=== PATIENT | female | born 2000 | race Caucasian/White ===

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

== ENCOUNTER 2021-04-06 12:55 | Outpatient (CLI) | payer OTHER, SELFPAY ==
--- NOTE | 2021-04-09 08:21 | WPDHOLTEREM ---
Holter/Event Monitor Holter/Event Monitor Date of procedure: 04/06/21 Procedure Type: 24 hour holter monitor Indications: Chest pain Conclusion: 1. 24 hour holter monitor on 04/06/21. 2. Underlying rhythm is sinus rhythm. HR range 65-156 bpm; average HR 106 bpm. 3. No premature supraventricular complexes. No supraventricular tachycardia. 4. No premature ventricular complexes. No ventricular tachycardia. 5. No sinoatrial or atrioventricular blocks. No significant pauses greater than 2 seconds. 6. No symptoms available for correlation.
== END 2021-04-06 12:56 | disposition home or self-care (01) ==
LOC: CHSCARD 13:00
PROVIDERS: PCP Family Medicine; Visit Provider Family Medicine
DX: R07.89 Other chest pain (principal)
CPT/HCPCS: 93225; 93226

== ENCOUNTER 2021-07-11 14:17 | Emergency (ER) | payer OTHER, SELFPAY ==
--- NOTE | ~2021-07-11 | XR_ITS ---
XR hand LT 2V, XR wrist LT 2V 07/11/2021 14:44 INDICATION: Left wrist and hand pain after twisting injury PROCEDURE: 2 views each of the left hand and wrist COMPARISON: No prior studies for comparison. FINDINGS: Fracture, dislocation or subluxation is not identified. The soft tissues appear within norm al limits. No foreign bodies are identified. IMPRESSION: 1: NO ACUTE BONE OR JOINT ABNORMALITY IDENTIFIED. Reviewed, dictated and finalized at location A. IMPRESSION: 1: NO ACUTE BONE OR JOINT ABNORMALITY IDENTIFIED.
[2021-07-11 14:30] VITALS: BP 128/83; PULSE 106; RESP 14; TEMP 36.1; O2SAT 98
--- NOTE | 2021-07-11 14:51 | ED.UPPEXIN ---
HPI - Extremity Injury (Upper) General Chief Complaint: Extremity Injury, Upper Stated Complaint: L hand pain Source: patient Mode of arrival: ambulatory Limitations: no limitations History of Present Illness HPI narrative: a 21-year-old female that injured her left wrist and hand few days ago complains of mild pain with no numbness or tingling no flank tenderness no bruising has good range of motion with no numbness or tingling no bruising. complaint: injury to: left and wrist Onset (ago): day(s) Handedness: right Place: home Severity: mild Related Data Home Medications Medication Instructions Recorded Confirmed No Home Medications 07/11/21 07/11/21 Allergies Allergy/AdvReac Type Severity Reaction Status Date / Time codeine Allergy Mild Unknown Verified 02/17/21 13:38 Review of Systems Review of Systems: All systems reviewed & are unremarkable except as noted in HPI and below PMFSH Past Medical History Medical History Acute insomnia ADHD Bipolar disorder Depression Gonorrhea Nicotine dependence, cigarettes, uncomplicated Prior miscarriage with in first trimester, antepartum Surgical History Surgical History No pertinent past surgical history Family History Family History Mother Healthy female Social History Social History Smoking status: Current every day smoker Tobacco type: cigarettes Exam Const: General: no acute distress and alert Orientation/consciousness: patient oriented x3 HENMT: Head: normal to inspection Eyes: Conjunctivae: conjunctivae normal Pupils: Equal, round and reactive pupils present EOM: EOMs intact bilaterally Neck: Neck: normal visual inspection, no lymphadenopathy and no meningeal signs Chest: Chest palpation & inspection: normal inspection of the chest Resp: Effort & Inspection: normal respiratory effort Cardio: Rate: regular rate Rhythm: regular rhythm GI: GI Palp: Yes Soft to palpation Percussion: Yes normal to percussion Urinary Catheter: Urinary Catheter: patent and draining Skin: General skin exam: normal color Rashes: no rashes Neuro: General: patient oriented x3 Extrem: General: normal to inspection and no pedal edema Psych: Mental Status: mental status grossly normal Affect: normal affect Attitude: cooperative Course Course Emergency Course: X-rays reviewed with patient which showed no acute fractures advised follow-up with primary care physician within the next 1 to 2 weeks for further evaluation and treatment. Vital Signs Vital signs: Vital Signs Temperature 36.1 C L 07/11/21 14:30 Pulse Rate 106 H 07/11/21 14:30 Respiratory Rate 14 07/11/21 14:30 Blood Pressure 128/83 07/11/21 14:30 Pulse Oximetry 98 07/11/21 14:30 Temperature 36.1 C L 07/11/21 14:30 Pulse Rate 106 H 07/11/21 14:30 Respiratory Rate 14 07/11/21 14:30 Blood Pressure 128/83 07/11/21 14:30 Pulse Oximetry 98 07/11/21 14:30 Critical Care Time Critical Care Time Critical Care Time: No Discharge Plan Discharge Clinical Impression: Hand sprain Qualifiers: Encounter type: initial encounter Laterality: left Qualified Code(s): S63.92XA - Sprain of unspecified part of left wrist and hand, initial encounter Patient Disposition: Home, Self-Care Condition: Stable Instructions: Antibiotic Form, Hand Sprain (ED) Additional Instructions: take Tylenol or Motrin [id number], continue Armando wrap and follow with primary care physician within 1 to 2 weeks further evaluation and treatment. Prescriptions: No Action No Home Medications RF: 0 Follow-up/Referrals: Tiffany Castelan NP [Primary Care Provider] - Time of Disposition: 14:55
== END 2021-07-11 15:14 | disposition home or self-care (01) ==
PROVIDERS: Emergency Provider Emergency Medicine; PCP Nurse Practitioner Family
DX: S63.92XA Sprain of unspecified part of left wrist and hand, initial encounter (principal)
CPT/HCPCS: 73100; 73120; 99282; 99283

== ENCOUNTER 2021-09-15 14:09 | Outpatient (CLI) | payer OTHER, SELFPAY ==
[2021-09-15 14:49] LABS: Basophils Absolute Auto 0.03 K/mm3 (0.00-0.10); Basophils Percent Auto 0.4 % (0.0-1.0); Eosinophils Absolute Auto 0.21 K/mm3 (0.02-0.50); Eosinophils Percent Auto 3.1 % (1.0-6.0); Hematocrit 42.6 % (35.0-49.0); Hemoglobin 14.7 g/dL (12.0-15.0); Immature Granulocyte Absolute 0.01 K/mm3 (0.00-0.00); Immature Granulocyte Percent A 0.1 % (0.0-0.0); Lymphocytes Percent Auto 33.5 % (18.0-42.0); Mean Corpuscular HGB Conc 34.5 g/dL (32.0-36.0); Mean Corpuscular Hemoglobin 29.8 pg (27.0-31.0); Mean Corpuscular Volume 86.4 fL (78.0-102.0); Mean Platelet Volume 10.5 fl (9.2-11.8); Monocytes Absolute Auto 0.49 K/mm3 (0.10-0.90); Monocytes Percent Auto 7.1 % (2.0-11.0); Neutrophils Absolute Auto 3.8 K/mm3 (1.7-7.2); Neutrophils Percent Auto 55.8 % (50.0-70.0); Platelet Count Result 274 K/mm3 (150-420); Red Blood Count 4.93 M/mm3 (4.20-5.40); Red Cell Distribution Width 12.4 % (11.6-14.4); White Blood Count 6.9 K/mm3 (4.8-10.8)
[2021-09-15 15:57] LABS: Alanine Aminotransferase 58 U/L (14-59); Alkaline Phosphatase 67 U/L (46-116); Anion Gap 10 mmol/L (8-16); Aspartate Amino Transferase 36 U/L (15-37); Bilirubin,Total 0.3 mg/dL (0.00-1.00); Blood Urea Nitrogen 9 mg/dL (7-18); Calcium 8.8 mg/dL (8.5-10.1); Carbon Dioxide 26 mmol/L (21-32); Chloride 104 mmol/L (98-108); Estimated Glomerular Filt Rate > 60; Free T4 Free Thyroxine 0.84 ng/dL (0.76-1.46); Glucose 91 mg/dL (70-99); Iron 84 ug/dL (50-170); Osmolality Calculated 288 mOsm/kg (285-295); Potassium 4.1 mmol/L (3.5-5.1); Sodium 140 mmol/L (136-145); Thyroid Stimulating Hormone 0.52 uIU/mL (0.36-3.74); Vitamin B12 454 pg/mL (193-986)
[2021-09-17 13:12] LABS: Vitamin D 25 Hydroxy 11 ng/mL (30-100)
== END 2021-09-15 14:10 | disposition home or self-care (01) ==
LOC: CHSLAB 14:13
PROVIDERS: PCP Nurse Practitioner Family; Visit Provider Nurse Practitioner Family
DX: R30.0 Dysuria (principal)
CPT/HCPCS: 36415; 80053; 82306; 82607; 83540; 83735; 84439; 84443; 85025; 87086

== ENCOUNTER 2021-12-06 11:18 | Emergency (ER) | payer OTHER, SELFPAY ==
--- NOTE | ~2021-12-06 | XR_ITS ---
XR foot RT min 3V 12/06/2021 11:48 Indication: Right foot pain Procedure: 4 views right foot Comparison: No prior studies for comparison. Findings: No fracture, subluxation or dislocation. No soft tissue abnormality. No foreign bodies. Lis franc joint intact. Impression: 1: No acute fracture. Reviewed, dictated and finalized at location A. T SPR[employer]ER SANDB[employer]ER Impression: 1: No acute fracture.
[2021-12-06 11:20] VITALS: BP 122/73; PULSE 89; RESP 16; TEMP 36.6; O2SAT 97
--- NOTE | 2021-12-06 11:30 | ED.EXTPRO ---
HPI - Extremity Problem General Chief complaint: Extremity Injury, Lower Stated complaint: R foot pain Source: patient and RN notes reviewed Mode of arrival: ambulatory Limitations: no limitations History of Present Illness Complaint: extremity pain Onset (ago): day(s) (2) Pain Consistency: intermittent Location: right, lower extremity and other (foot) Severity scale (1-10): 4 Quality: aching and dull Radiation: none Relieving factors: nothing Exacerbating factors: weight bearing, walking and palpation Associated symptoms: denies other symptoms Related Data Allergies Allergy/AdvReac Type Severity Reaction Status Date / Time codeine Allergy Mild Unknown Verified 12/06/21 11:35 Review of Systems Review of Systems: All systems reviewed & are unremarkable except as noted in HPI and below PMFSH Past Medical History Medical History Acute insomnia ADHD Bipolar disorder Depression Gonorrhea Nicotine dependence, cigarettes, uncomplicated Prior miscarriage with in first trimester, antepartum Surgical History Surgical History No pertinent past surgical history Family History Family History Mother Healthy female Social History Social History Smoking status: Current every day smoker Tobacco type: cigarettes Exam Const: General: healthy appearing, no acute distress and alert Nutritional Appearance: well nourished Orientation/consciousness: patient oriented x3 HENMT: Head: normal to inspection Ears: external ears normal Eyes: Conjunctivae: conjunctivae normal Pupils: Equal, round and reactive pupils present EOM: EOMs intact bilaterally Neck: Neck: normal visual inspection Resp: Effort & Inspection: normal respiratory effort Auscultation: clear to auscultation bilaterally Cardio: Rate: regular rate Rhythm: regular rhythm GI: GI Palp: Yes Soft to palpation and No Tenderness to palpation present (GI) Auscultation: normal bowel sounds Back/Spine/Pelvis: Cervical Spine: cervical ROM normal Thoracic/Lumbar Spine: thoraco-lumbar ROM normal Skin: General skin exam: normal color Rashes: no rashes Neuro: General: patient oriented x3, moves all extremities, no meningeal signs, no focal motor deficits and CN's II-XI intact bilaterally Speech: normal speech Gait exam (Neuro): Normal gait present Extrem: General: normal exam except as noted and no clubbing, cyanosis or edema Right lower extremity: normal to inspection, full ROM and foot Details: normal capillary refill and tenderness Location: of the mid foot Location: dorsally ( Over the 4th metatarsal) Psych: Appearance: grossly normal and well kempt Mental Status: mental status grossly normal Affect: normal affect Attitude: cooperative Thought content: Yes Normal thought content present Course Vital Signs Vital signs: Vital Signs Temperature 36.6 C 12/06/21 11:20 Pulse Rate 89 12/06/21 11:20 Respiratory Rate 16 12/06/21 11:20 Blood Pressure 122/73 12/06/21 11:20 Pulse Oximetry 97 12/06/21 11:20 Temperature 36.6 C 12/06/21 11:20 Pulse Rate 94 12/06/21 12:26 Respiratory Rate 18 12/06/21 12:26 Blood Pressure 117/67 12/06/21 12:26 Pulse Oximetry 98 12/06/21 12:26 Discharge Plan Discharge Clinical Impression: Acute foot pain Qualifiers: Laterality: right Qualified Code(s): M79.671 - Pain in right foot Patient Disposition: Home, Self-Care Condition: Stable Instructions: Metatarsalgia (DC) Additional Instructions: can use heat as needed. See her primary care physician if not improved in the next 10-14 days. Prescriptions: New nabumetone 750 mg tablet 750 mg PO BID PRN (Reason: pain) Qty: 20 RF: 0 Follow-up/Referrals: Tiffany Castelan NP [Primary Ca
--- NOTE | 2021-12-06 11:37 | PC.NURSE ---
RN in with ERP to rn wound exam
[2021-12-06 12:26] VITALS: BP 117/67; PULSE 94; RESP 18; O2SAT 98
== END 2021-12-06 12:28 | disposition home or self-care (01) ==
PROVIDERS: Emergency Provider Emergency Medicine; PCP Nurse Practitioner Family
DX: M79.671 Pain in right foot (principal)
CPT/HCPCS: 73630; 99283

== ENCOUNTER 2022-01-02 19:19 | Emergency (ER) | payer OTHER, SELFPAY ==
--- NOTE | ~2022-01-02 | CT_ITS ---
EXAMINATION: CT brain wo con DATE: 01/02/2022 21:19 INDICATION: Headache. TECHNIQUE: Computed tomography (CT) of the head was performed without intravenous contrast. The mA wa s adjusted according to patient size. Iterative reconstruction technique was employed. The dose-lengt h product was 605.33 mGy-cm. COMPARISON: None FINDINGS: There is no intracranial hemorrhage, acute infarction, or abnormal intracranial mass lesion . The ventricles are normal in size. The paranasal sinuses are clear. The mastoid air cells are chicho l. The orbits are normal. . IMPRESSION: 1. Normal brain. Reviewed, dictated and finalized at location A. ISH REMOVER IMPRESSION: 1. Normal brain.
[2022-01-02 20:03] VITALS: BP 123/75; PULSE 72; RESP 17; TEMP 36.9; O2SAT 100
[2022-01-02 20:45] VITALS: BP 139/83; PULSE 80; O2SAT 97
[2022-01-02] MEDS: ONDANSETRON HCL ODT 4 MG TABLET PO (20:47)
[2022-01-02 20:50] LABS: Pregnancy On Board Control Positive; Urine Pregnancy Test Negative
[2022-01-02 20:53] LABS: Add Urine Microscopic? YES; Appearance Urine Clear (Clear); Bilirubin Urine Negative (Negative); Blood Urine 1+ (Negative); Color Urine Light Yellow (Yellow); Glucose Urine UA Negative (Negative); Ketones Urine Negative (Negative); Leukocyte Esterase Ur Negative (Negative); Nitrate Urine Negative (Negative); Protein Urine Negative (Negative); Specific Grav Ur 1.025 (1.010-1.020); Urobilinogen Urine 0.2 mg/dL (0.2-1.0); pH Urine 5.5 (5.0-8.0)
--- NOTE | 2022-01-02 20:54 | ED.HA ---
HPI - Headache General Chief Complaint: Unspecified Stated Complaint: Throwing up, almost passing out Time Seen by Provider: 01/02/22 20:25 Source: patient Mode of arrival: ambulatory Limitations: no limitations History of Present Illness HPI Narrative: 21-year-old woman comes in today complaining of lightheadedness, dizziness, feeling like she is going to pass out, head pain in the right occipital area and right ear pain. She states that her symptoms started a week ago and have gradually gotten worse. She has also had some nausea. She states that she has not had her period for the last 4 months but states that she is not . She had a baby approximately 1 year ago. She denies head injury, syncope, falls, seizures, photophobia and diplopia. MD elicited complaint: headache Onset (ago): week(s) (1) Onset description: gradually Location: right and occipital Severity: moderate Quality & Timing: pressure and progressively worsening Exacerbating factors: none Relieving factors: nothing Context: occurred at rest Associated symptoms: nausea, near syncope and lightheadedness Treatments prior to arrival: acetaminophen Related Data Allergies Allergy/AdvReac Type Severity Reaction Status Date / Time codeine Allergy Mild Unknown Verified 01/02/22 20:00 Review of Systems Review of Systems: All systems reviewed & are unremarkable except as noted in HPI and below Constitutional: Constitutional: Denies chills and Denies fever(s) Eyes: Eyes: Denies change in vision and Denies photophobia ENT: Denies dysphagia, Denies nasal congestion and Denies sore throat Cardiovascular: Cardiovascular: Denies chest pain Respiratory: Respiratory: Denies cough and Denies dyspnea Gastrointestinal: Gastrointestinal: Denies abdominal pain, Reports nausea and Denies vomiting Genitourinary: Genitourinary: Denies hematuria, Denies nocturia and Denies dysuria Musculoskeletal: Musculoskeletal: Denies back pain, Denies arthralgias and Denies joint swelling Integumentary/Breasts: Skin/Breast: Denies pruritus, Denies erythema and Denies rash Neurologic: Reports as per HPI, Denies confusion, Denies vertigo, Reports dizziness, Denies syncope, Denies focal weakness, Denies numbness and Denies weakness Allergic/Immunologic: Allergic/Immunologic: Denies throat swelling PMFSH Past Medical History Medical History Acute insomnia ADHD Bipolar disorder Depression Gonorrhea Nicotine dependence, cigarettes, uncomplicated Prior miscarriage with in first trimester, antepartum Surgical History Surgical History No pertinent past surgical history Family History Family History Mother Healthy female Social History Social History (Updated 01/02/22 @ 20:57 by Pawel Ramirez MD) Smoking status: Current every day smoker Tobacco type: cigarettes Alcohol intake: current Alcohol use details: Occasional Substance use: never Living arrangements: with family Exam Const: General: healthy appearing, no acute distress and alert Orientation/consciousness: patient oriented x3 Limitations: no limitations HENMT: Head: normal to inspection Ears: external ears normal, TM's normal bilaterally and EAC's normal Face and sinus: normal facial exam Throat: posterior oropharynx normal and uvula midline Eyes: Conjunctivae: conjunctivae normal Pupils: Equal, round and reactive pupils present EOM: EOMs intact bilaterally Neck: Neck: lymphadenopathy noted and no meningeal signs Resp: Effort & Inspection: normal respiratory effort and not labored Auscultation: clear to auscultation bilaterally, no rales, no rhonchi and no wheezes Cardio: Rate: regular rate Rhythm: regular rhythm Heart sounds: no murmurs Skin: General skin exam: normal color, no jaundice and no pall
[2022-01-02 21:00] VITALS: BP 130/90; PULSE 77; O2SAT 97
[2022-01-02 21:08] LABS: Basophils Absolute Auto 0.03 K/mm3 (0.00-0.10); Basophils Percent Auto 0.4 % (0.0-1.0); Eosinophils Absolute Auto 0.14 K/mm3 (0.02-0.50); Eosinophils Percent Auto 1.8 % (1.0-6.0); Hematocrit 46.1 % (35.0-49.0); Hemoglobin 15.7 g/dL (12.0-15.0); Immature Granulocyte Absolute 0.02 K/mm3 (0.00-0.00); Immature Granulocyte Percent A 0.3 % (0.0-0.0); Lymphocytes Absolute Auto 2.37 K/mm3 (1.10-4.50); Lymphocytes Percent Auto 30.5 % (18.0-42.0); Mean Corpuscular HGB Conc 34.1 g/dL (32.0-36.0); Mean Corpuscular Hemoglobin 30.4 pg (27.0-31.0); Mean Corpuscular Volume 89.3 fL (78.0-102.0); Mean Platelet Volume 10.9 fl (9.2-11.8); Monocytes Absolute Auto 0.37 K/mm3 (0.10-0.90); Monocytes Percent Auto 4.8 % (2.0-11.0); Neutrophils Absolute Auto 4.8 K/mm3 (1.7-7.2); Neutrophils Percent Auto 62.2 % (50.0-70.0); Platelet Count Result 257 K/mm3 (150-420); Red Blood Count 5.16 M/mm3 (4.20-5.40); Red Cell Distribution Width 11.5 % (11.6-14.4); White Blood Count 7.8 K/mm3 (4.8-10.8)
[2022-01-02 21:10] LABS: Mucus Urine Heavy /lpf; RBC Urine None seen /hpf (0-2); Squamous Epithelial Cell Urine Moderate /hpf (Few)
[2022-01-02 21:23] LABS: Alanine Aminotransferase 32 U/L (14-59); Albumin Level 4.1 g/dL (3.4-5.0); Alkaline Phosphatase 69 U/L (46-116); Anion Gap 11 mmol/L (8-16); Aspartate Amino Transferase 18 U/L (15-37); Bilirubin,Total 0.3 mg/dL (0.00-1.00); Blood Urea Nitrogen 9 mg/dL (7-18); Calcium 9.1 mg/dL (8.5-10.1); Carbon Dioxide 27 mmol/L (21-32); Chloride 105 mmol/L (98-108); Estimated CRCL calculation 659 ml/min; Estimated Glomerular Filt Rate > 60; Glucose 86 mg/dL (70-99); Osmolality Calculated 293 mOsm/kg (285-295); Potassium 3.9 mmol/L (3.5-5.1); Sodium 143 mmol/L (136-145); Total Protein 7.4 g/dL (6.4-8.2)
[2022-01-02 23:59] VITALS: BP 134/90; PULSE 58; RESP 16; TEMP 36.6; O2SAT 100
== END 2022-01-03 00:17 | disposition home or self-care (01) ==
PROVIDERS: Emergency Provider Emergency Medicine; PCP Nurse Practitioner Family
DX: R51.9 Headache, unspecified (principal)
CPT/HCPCS: 36415; 70450; 80053; 81001; 81025; 85025; 99284; A9270

== ENCOUNTER 2022-01-07 11:02 | Outpatient (CLI) | payer OTHER, SELFPAY ==
[2022-01-07] MEDS: DIVALPROEX SODIUM ER 500 MG TAB.24H PO (11:59)
[2022-01-07] MEDS: METOCLOPRAMIDE HCL INJ 10 MG/2 ML VIAL IV PUSH (11:59)
[2022-01-07] MEDS: DEXAMETHASONE SOD PHOS INJ 4 MG/ML VIAL IV PUSH (12:00)
[2022-01-07] MEDS: SODIUM CHLORIDE 0.9% IV 1,000 ML 999 ML IVPB (12:00)
== END 2022-01-07 11:03 | disposition home or self-care (01) ==
LOC: CHSTREATRM 11:03
PROVIDERS: PCP Nurse Practitioner Family; Visit Provider Nurse Practitioner Family
DX: G43.909 Migraine, unspecified, not intractable, without status migrainosus (principal)
CPT/HCPCS: 96361; 96365; 96374; 96375; A9270; J1100; J2765

== ENCOUNTER 2022-03-22 22:58 | Emergency (ER) | payer OTHER, SELFPAY ==
--- NOTE | ~2022-03-22 | XR_ITS ---
EXAMINATION: XR chest 1V portable DATE: 03/22/2022 23:29 INDICATION: Fever. TECHNIQUE: A single frontal view of the chest was obtained. COMPARISON: Chest 2 views 01/14/2015 FINDINGS: The chest demonstrates clear lungs without pneumonia, pleural effusion, or pneumothorax. Th e heart size is normal. IMPRESSION: 1. No acute cardiopulmonary disease. Reviewed, dictated and finalized at location A.
[2022-03-22 23:15] VITALS: BP 99/63; PULSE 112; RESP 19; TEMP 37.4; O2SAT 99
[2022-03-22 23:47] LABS: Basophils Absolute Auto 0.02 K/mm3 (0.00-0.10); Basophils Percent Auto 0.3 % (0.0-1.0); Eosinophils Percent Auto 1.7 % (1.0-6.0); Hematocrit 42.1 % (35.0-49.0); Hemoglobin 14.4 g/dL (12.0-15.0); Immature Granulocyte Absolute 0.02 K/mm3 (0.00-0.00); Immature Granulocyte Percent A 0.3 % (0.0-0.0); Lymphocytes Absolute Auto 0.78 K/mm3 (1.10-4.50); Lymphocytes Percent Auto 12.9 % (18.0-42.0); Mean Corpuscular HGB Conc 34.2 g/dL (32.0-36.0); Mean Corpuscular Hemoglobin 30.5 pg (27.0-31.0); Mean Corpuscular Volume 89.2 fL (78.0-102.0); Mean Platelet Volume 10.2 fl (9.2-11.8); Monocytes Absolute Auto 0.59 K/mm3 (0.10-0.90); Monocytes Percent Auto 9.8 % (2.0-11.0); Neutrophils Absolute Auto 4.5 K/mm3 (1.7-7.2); Platelet Count Result 236 K/mm3 (150-420); Red Blood Count 4.72 M/mm3 (4.20-5.40); Red Cell Distribution Width 11.6 % (11.6-14.4)
[2022-03-22 23:49] LABS: Add Urine Microscopic? YES; Appearance Urine Clear (Clear); Bilirubin Urine Negative (Negative); Blood Urine 1+ (Negative); Color Urine Light Yellow (Yellow); Glucose Urine UA Negative (Negative); Ketones Urine Negative (Negative); Leukocyte Esterase Ur Negative (Negative); Nitrate Urine Negative (Negative); Protein Urine Negative (Negative); Urobilinogen Urine 0.2 mg/dL (0.2-1.0)
[2022-03-22] MEDS: IBUPROFEN 400 MG TABLET 800 MG PO (23:53)
[2022-03-22] MEDS: SODIUM CHLORIDE 0.9% IV 1,000 ML 999 ML IV CONT (23:53)
[2022-03-22 23:59] LABS: Bacteria Urine Trace /hpf; SPREG INTERNAL CONTROL Positive; Serum Qual hCG Negative; Squamous Epithelial Cell Urine Rare /hpf (Few); WBC Urine 0-3 /hpf (0-3)
[2022-03-23 00:04] LABS: Alanine Aminotransferase 45 U/L (14-59); Albumin Level 3.9 g/dL (3.4-5.0); Alkaline Phosphatase 64 U/L (46-116); Anion Gap 7 mmol/L (8-16); Aspartate Amino Transferase 22 U/L (15-37); Bilirubin,Total 0.2 mg/dL (0.00-1.00); Blood Urea Nitrogen 8 mg/dL (7-18); Calcium 8.7 mg/dL (8.5-10.1); Carbon Dioxide 27 mmol/L (21-32); Chloride 101 mmol/L (98-108); Estimated CRCL calculation 119 ml/min; Estimated Glomerular Filt Rate > 60; Glucose 94 mg/dL (70-99); Osmolality Calculated 278 mOsm/kg (285-295); Potassium 3.5 mmol/L (3.5-5.1); Sodium 135 mmol/L (136-145); Total Protein 7.3 g/dL (6.4-8.2)
[2022-03-23 00:30] LABS: Influenza A QL RT-PCR Negative (Negative); Influenza B QL RT-PCR Negative (Negative); SARS-CoV-2 RNA PCR Positive (Negative)
--- NOTE | 2022-03-23 00:30 | ED.FEVER ---
HPI - Fever General Chief Complaint: Fever Stated Complaint: fever,chills,nausea,body aches Time Seen by Provider: 03/22/22 23:03 Source: patient and RN notes reviewed Mode of arrival: ambulatory Limitations: no limitations History of Present Illness MD elicited complaint: fever Onset (ago): hour(s) (1) Measured temperature: 102 C Exacerbating factors: nothing Relieving factors: acetaminophen Associated symptoms: myalgias and nausea Treatments prior to arrival fever: acetaminophen Related Data Allergies Allergy/AdvReac Type Severity Reaction Status Date / Time codeine Allergy Mild Unknown Verified 03/22/22 23:13 Review of Systems Review of Systems: All systems reviewed & are unremarkable except as noted in HPI and below PMFSH Past Medical History Medical History Acute insomnia ADHD Bipolar disorder Depression Diarrhea Eustachian tube dysfunction Fatigue Gonorrhea Nicotine dependence, cigarettes, uncomplicated Prior miscarriage with in first trimester, antepartum UTI (urinary tract infection) Viral syndrome Surgical History Surgical History No pertinent past surgical history Family History Family History Mother Healthy female Social History Social History Smoking status: Current every day smoker Tobacco type: cigarettes Alcohol intake: current Alcohol use details: Occasional Substance use: never Exam Const: General: no acute distress Nutritional Appearance: well nourished Orientation/consciousness: patient oriented x3 Limitations: no limitations HENMT: Head: normal to inspection Ears: external ears normal, TM's normal bilaterally and EAC's normal General nose exam: Normal external nose present and Normal nares present Face and sinus: normal facial exam and sinuses nontender Mouth: Yes moist mucous membranes Eyes: Conjunctivae: conjunctivae normal Pupils: Equal, round and reactive pupils present EOM: EOMs intact bilaterally Neck: Neck: normal visual inspection and no lymphadenopathy Chest: Chest palpation & inspection: normal inspection of the chest Resp: Effort & Inspection: normal respiratory effort Auscultation: clear to auscultation bilaterally Cardio: Rate: regular rate Rhythm: regular rhythm Peripheral pulses: Peripheral pulses 2+ throughout GI: GI Palp: Yes Soft to palpation and No Tenderness to palpation present (GI) Auscultation: normal bowel sounds : General: Yes bladder normal to palpation and Yes no CVA tenderness Back/Spine/Pelvis: Back: no CVA tenderness Skin: General skin exam: normal color Rashes: no rashes Neuro: General: patient oriented x3, moves all extremities, no meningeal signs, no focal motor deficits and CN's II-XI intact bilaterally Extrem: General: no pedal edema Other: no acute calf tenderness Psych: Mental Status: mental status grossly normal Thought content: Yes Normal thought content present Course Reevaluation(s) Reevaluation #1: Stable pt with VSS. Date: 03/23/22 Time: 23:55 Vital Signs Vital signs: Vital Signs Temperature 37.4 C 03/22/22 23:15 Pulse Rate 112 H 03/22/22 23:15 Respiratory Rate 19 03/22/22 23:15 Blood Pressure 99/63 L 03/22/22 23:15 Pulse Oximetry 99 03/22/22 23:15 Temperature 37.4 C 03/22/22 23:15 Pulse Rate 112 H 03/22/22 23:15 Respiratory Rate 19 03/22/22 23:15 Blood Pressure 99/63 L 03/22/22 23:15 Pulse Oximetry 99 03/22/22 23:15 MDM - Fever Differential Diagnosis Differential diagnosis: Likely fever of unknown origin and viral infection Medical Records Attestation: I reviewed the patient's medical records. Lab Data Attestation: I reviewed the patient's lab results. Result diagrams: 03/22/22 23:40 03/22/22
[2022-03-23] MEDS: ONDANSETRON INJ 4 MG/2 ML VIAL IV PUSH (00:52)
[2022-03-23 02:28] VITALS: BP 97/56; PULSE 98; RESP 17; TEMP 37.4; O2SAT 99
== END 2022-03-23 02:00 | disposition home or self-care (01) ==
PROVIDERS: Emergency Provider Emergency Medicine; PCP Nurse Practitioner Family
DX: U07.1 COVID-19 (principal); H69.90 Unspecified Eustachian tube disorder, unspecified ear; F90.9 Attention-deficit hyperactivity disorder, unspecified type; F31.9 Bipolar disorder, unspecified; F17.210 Nicotine dependence, cigarettes, uncomplicated
CPT/HCPCS: 36415; 71045; 80053; 81001; 84703; 85025; 87040; 87081; 87502; 87880; 96361; 96374; 99284; A9270; C9803; J2405; J7030; U0003; U0005

== ENCOUNTER 2022-05-25 21:16 | Emergency (ER) | payer OTHER, SELFPAY ==
[2022-05-25] VITALS (10 sets, daily range): BP systolic 119–140; BP diastolic 78–97; PULSE 82–112; RESP 16–21; TEMP 36.6; O2SAT 96–99
--- NOTE | 2022-05-25 21:22 | ED.OVERDOSE ---
HPI - Overdose General Chief Complaint: Overdose Stated Complaint: possible overdose Time Seen by Provider: 05/25/22 21:22 Source: patient and RN notes reviewed Mode of arrival: ambulatory Limitations: no limitations History of Present Illness HPI Narrative: Patient states she got in a fight with her parents and took 40 units some with the intent to end her life. complaint: intentional overdose Onset (ago): minute(s) (30) Substance Ingested unisom : Number of Pills Ingested: 40 Intent: suicide attempt How Overdose Was Discovered: family/friend present at time Context: Intentional Overdose: relationship problems Associated symptoms: depression Treatments Prior to Arrival: none Related Data Home Medications Medication Instructions Recorded Confirmed No Home Medications 05/25/22 05/25/22 Allergies Allergy/AdvReac Type Severity Reaction Status Date / Time codeine Allergy Mild Unknown Verified 05/25/22 21:31 Review of Systems Review of Systems: All systems reviewed & are unremarkable except as noted in HPI and below Constitutional: Constitutional: Reports fatigue PMFSH Past Medical History Medical History Acute insomnia ADHD Bipolar disorder Depression Diarrhea Eustachian tube dysfunction Fatigue Gonorrhea Nicotine dependence, cigarettes, uncomplicated Prior miscarriage with in first trimester, antepartum UTI (urinary tract infection) Viral syndrome Surgical History Surgical History No pertinent past surgical history Family History Family History Mother Healthy female Social History Social History Smoking status: Current every day smoker Tobacco type: cigarettes Alcohol intake: current Alcohol use details: Occasional Substance use: never Exam Const: General: healthy appearing, no acute distress and alert Nutritional Appearance: well nourished and obese morbidly obese Orientation/consciousness: patient oriented x3 Limitations: no limitations Other: female tech in room during examination. HENMT: Head: normal to inspection Ears: external ears normal Eyes: Conjunctivae: conjunctivae normal Pupils: Equal, round and reactive pupils present EOM: EOMs intact bilaterally Neck: Neck: normal visual inspection Resp: Effort & Inspection: normal respiratory effort Auscultation: clear to auscultation bilaterally Cardio: Rate: regular rate Rhythm: regular rhythm GI: GI Palp: Yes Soft to palpation and No Tenderness to palpation present (GI) Auscultation: normal bowel sounds Back/Spine/Pelvis: Cervical Spine: cervical ROM normal Thoracic/Lumbar Spine: thoraco-lumbar ROM normal Skin: General skin exam: normal color Rashes: no rashes Neuro: General: patient oriented x3, moves all extremities, no focal motor deficits and CN's II-XI intact bilaterally Speech: normal speech Gait exam (Neuro): Normal gait present Extrem: General: normal to inspection and no clubbing, cyanosis or edema Psych: Appearance: grossly normal and well kempt Mental Status: mental status grossly normal Speech and movement: Normal speech and movement present Affect: Sad affect present and Indifferent affect present Attitude: cooperative and Avoids eye contact (attititude/behavior) Thought process: Normal thought process present Thought content: No Suicidality present ( Denies suicidal ideations now) Insight: Good insight present (Psych) Judgement: Good judgement present (Psych) Course Vital Signs Vital signs: Vital Signs Temperature 36.6 C 05/25/22 21:25 Pulse Rate 82 05/25/22 21:25 Respiratory Rate 16 05/25/22 21:25 Blood Pressure 140/85 05/25/22 21:25 Pulse Oximetry 96 05/25/22 21:25 Oxygen Delivery Room Air 05/25/22 21:25 Temperatu
--- NOTE | 2022-05-25 21:32 | PC.NURSE ---
I accompanied DR LEWIS into RM 6 @ 2124 ,so that he could examine patient.
--- NOTE | 2022-05-25 21:38 | ECG_ITS ---
Measurements Intervals [place] Rate: 109 P: 44 OR: 112 QRS: 50 QRSD: 97 T: 17 QT: 338 QTc: 456 Interpretive Statements SINUS TACHYCARDIA WITH SHORT OR INTERVAL MINIMAL Q WAVES- INFERIOR LEADS BORDERLINE T WAVE ABNORMALITY- ANTERIOR LEADS BORDERLINE ECG Electronically Signed On 05-26-2022 6:49:31 CDT by Kulwant Rivera D.O.
[2022-05-25 21:47] LABS: Basophils Absolute Auto 0.03 K/mm3 (0.00-0.10); Basophils Percent Auto 0.3 % (0.0-1.0); Eosinophils Absolute Auto 0.18 K/mm3 (0.02-0.50); Hematocrit 44.3 % (35.0-49.0); Hemoglobin 15.1 g/dL (12.0-15.0); Immature Granulocyte Absolute 0.02 K/mm3 (0.00-0.00); Immature Granulocyte Percent A 0.2 % (0.0-0.0); Lymphocytes Absolute Auto 2.48 K/mm3 (1.10-4.50); Lymphocytes Percent Auto 27.6 % (18.0-42.0); Mean Corpuscular HGB Conc 34.1 g/dL (32.0-36.0); Mean Corpuscular Hemoglobin 30.5 pg (27.0-31.0); Mean Corpuscular Volume 89.5 fL (78.0-102.0); Mean Platelet Volume 10.9 fl (9.2-11.8); Monocytes Absolute Auto 0.53 K/mm3 (0.10-0.90); Monocytes Percent Auto 5.9 % (2.0-11.0); Neutrophils Absolute Auto 5.8 K/mm3 (1.7-7.2); Platelet Count Result 250 K/mm3 (150-420); Red Blood Count 4.95 M/mm3 (4.20-5.40); Red Cell Distribution Width 11.5 % (11.6-14.4)
--- NOTE | 2022-05-25 21:52 | PC.NURSE ---
poison control case #[id number]
[2022-05-25 22:09] LABS: Alanine Aminotransferase 48 U/L (14-59); Albumin Level 4.3 g/dL (3.4-5.0); Alkaline Phosphatase 61 U/L (46-116); Anion Gap 8 mmol/L (8-16); Aspartate Amino Transferase 21 U/L (15-37); Bilirubin,Total 0.2 mg/dL (0.00-1.00); Blood Urea Nitrogen 10 mg/dL (7-18); Calcium 9.4 mg/dL (8.5-10.1); Carbon Dioxide 27 mmol/L (21-32); Chloride 104 mmol/L (98-108); Estimated Glomerular Filt Rate > 60; Glucose 91 mg/dL (70-99); Osmolality Calculated 287 mOsm/kg (285-295); Potassium 3.8 mmol/L (3.5-5.1); Sodium 139 mmol/L (136-145); Thyroid Stimulating Hormone 0.44 uIU/mL (0.36-3.74); Total Protein 7.6 g/dL (6.4-8.2)
[2022-05-25 22:10] LABS: Acetaminophen < 2 ug/mL (10-30); Ethanol < 3 mg/dL (0-6)
[2022-05-25 22:12] LABS: Salicylate 4.4 mg/dL (2.8-20.0)
[2022-05-25] MEDS: CHARCOAL ACTIVATED LIQUID 25 GM/120 ML BOTTLE 50 GM PO (22:24)
[2022-05-25 22:41] LABS: Amphetamine Screen Urine Negative (Negative); Barbiturate Screen Urine Negative (Negative); Benzodiazepines Screen Urine Negative (Negative); Cannabinoid Screen Urine Negative (Negative); Cocaine Screen Urine Negative (Negative); Methadone Screen Urine Negative (Negative); Opiate Screen Urine Negative (Negative); Phencyclidine Screen Urine Negative (Negative)
--- NOTE | 2022-05-25 23:04 | PC.NURSE ---
[facility] butch paged, states in route
[2022-05-26] VITALS (20 sets, daily range): BP systolic 103–132; BP diastolic 62–83; PULSE 90–126; RESP 13–30; TEMP 36.6; O2SAT 66–100
[2022-05-26 00:10] LABS: Alanine Aminotransferase 48 U/L (14-59); Albumin Level 4.4 g/dL (3.4-5.0); Alkaline Phosphatase 64 U/L (46-116); Anion Gap 8 mmol/L (8-16); Aspartate Amino Transferase 24 U/L (15-37); Bilirubin,Total 0.3 mg/dL (0.00-1.00); Blood Urea Nitrogen 10 mg/dL (7-18); Calcium 9.6 mg/dL (8.5-10.1); Carbon Dioxide 26 mmol/L (21-32); Chloride 106 mmol/L (98-108); Estimated Glomerular Filt Rate > 60; Glucose 87 mg/dL (70-99); Osmolality Calculated 288 mOsm/kg (285-295); Potassium 3.8 mmol/L (3.5-5.1); Sodium 140 mmol/L (136-145); Total Protein 7.8 g/dL (6.4-8.2)
--- NOTE | 2022-05-26 01:16 | PC.NURSE ---
Liz carranza not arrived, called for update, will return
--- NOTE | 2022-05-26 01:49 | PC.NURSE ---
[facility]
--- NOTE | 2022-05-26 03:52 | PC.NURSE ---
PT cleared per poison control
--- NOTE | 2022-05-26 04:16 | PC.NURSE ---
pts mother came in with grandmother and talked pt into walking out
--- NOTE | 2022-05-26 04:33 | PC.NURSE ---
Pt returned by dary MERCER,
--- NOTE | 2022-05-26 04:49 | PC.NURSE ---
pt's mother brought a shirt for the pt to the ER. this staff member had the mother place the shirt in a personal belongings bag. the pt's mother asked this staff member if she could come back and to the pt's room. this staff member informed the mother that she is not allowed back but she can have a seat in the waiting room. this staff member heard the pt's mother say, well fuck you and exited the ER.
--- NOTE | 2022-05-26 05:30 | PC.NURSE ---
PT AYE WAS LAYING IN BED IN RM 6 WAITING FOR GRANDMA (ROBBY) TO COME BACK WITH SOME CLOTHES FOR [facility]. PT'S MOM (VARSHA IRVING) CAME INTO ER WAITNG WITH PT'S GRANDMA. THEY WERE LET BACK BY AMPARO BLAKE. NURSE HAYDEN FOLLOWED THEM OVER TO THE TO CHAT WITH MOM SINCE SHE HADN'T BEEN HERE ALL NIGHT. WHEN PT'S MOM GOT INTO ,SHE WAS TELLING PT THAT SHE WAS 22 YEARS OLD AND SHE COULD LEAVE IF SHE WANTED TO. AMPARO BLAKE TOLD MOM THAT SHE NEEDED TO STAY HERE SO THAT SHE COULD GET THE HELP SHE NEEDED. PT'S MOM SAID NO SHE DOESN'T. PT'S MOM TOLD HER THAT SHE HAS A CHILD TO TAKE CARE OF AT HOME AND THAT SHE NEEDED TO GET HER SHOES ON AND LEAVE. AMPARO BLAKE TOLD HER SHE NEEDED TO LEAVE AND REFUSED, SO HE SAID THAT HE WAS GONNA CALL THE [employer]. AMPARO BLAKE CALLED THE [place] PD. THE MOM,PT AND GRANDMA ALL WALKED OUT. AMPARO ORTIZ AND AMPARO BLAKE TRIED TO STOP THEM BUT WAS TOLD THAT THEY BETTER GET OUT OF THE WAY. THE PT,HER MOM AND GRANDMA MADE INTO THEIR CAR,WHERE THEY WERE STOPPED BY THE PD. THE EXPLOSIVE MAN GOT THEM TALKED INTO COMING BACK IN. THE MOM WANTED TO COME BACK IN WITH PT AND SHE WAS TOLD THAT SHE WAS NOT ALLOWED AND THAT SHE NEEDED TO JUST HAVE A SEAT AND SHE CUSSED AMPARO ORTIZ AND WALKED OUT.
--- NOTE | 2022-05-26 05:34 | PC.NURSE ---
Pt relocated to room 5, video monitoring in progress
--- NOTE | 2022-05-26 05:46 | PC.NURSE ---
At approximately 0430, [place] police patrol officer Bryanna returned to the ER and informed this staff member that the pt's mother said that she hated AMPARO Bliss and AMPARO Bradshaw but she liked Lavern Liss.
--- NOTE | 2022-05-26 06:05 | PC.NURSE ---
Pt was offered blanket, as well as choice of TV being on. whatever was only response
[2022-05-26 06:48] LABS: Pregnancy On Board Control Positive; Urine Pregnancy Test Negative
[2022-05-26 07:03] LABS: Add Urine Microscopic? YES; Appearance Urine Clear (Clear); Bilirubin Urine Negative (Negative); Blood Urine 1+ (Negative); Color Urine Light Yellow (Yellow); Glucose Urine UA Negative (Negative); Ketones Urine Negative (Negative); Leukocyte Esterase Ur 2+ (Negative); Nitrate Urine Negative (Negative); Protein Urine Negative (Negative); Urobilinogen Urine 0.2 mg/dL (0.2-1.0)
--- NOTE | 2022-05-26 07:07 | PC.NURSE ---
Mago Bojorquez Female : 2000 Emr# [id number] 05/26/22 03:52 - Nurse Note by Augustine Hermosillo RN Acct Num: [id number] : 2000 Patient Age: 22 PT cleared per poison control Initialized on 05/26/22 03:52 - END OF NOTE PT cleared by poison control at 0352
--- NOTE | 2022-05-26 07:08 | PC.NURSE ---
Report given to Iker CHRISTENSEN
[2022-05-26 07:15] LABS: Bacteria Urine 1+ /hpf; Squamous Epithelial Cell Urine Few /hpf (Few)
[2022-05-26 07:53] LABS: SARS-CoV-2 RNA PCR Negative (Negative)
--- NOTE | 2022-05-26 08:56 | PC.NURSE ---
0700 report from AMPARO esposito. pt resting in recliner in Room 5. waiting bed placement at [facility].
--- NOTE | 2022-05-26 09:32 | PC.NURSE ---
faxed requested labs to [facility], awaiting bed placement. pt remains asleep. continues on direct visual monitoring.
--- NOTE | 2022-05-26 09:35 | PC.NURSE ---
call received, pt to go to bed 201-A.
== END 2022-05-26 10:25 ==
PROVIDERS: Emergency Provider Emergency Medicine; PCP Nurse Practitioner Family
DX: T50.902A Poisoning by unspecified drugs, medicaments and biological substances, intentional self-harm, initial encounter (principal); Z20.822 Contact with and (suspected) exposure to COVID-19
CPT/HCPCS: 36415; 80053; 80307; 81001; 81025; 83735; 84443; 85025; 93005; 99284; 99285; C9803; U0003; U0005

== ENCOUNTER 2022-11-01 12:47 | Emergency (ER) | payer OTHER, SELFPAY ==
--- NOTE | 2022-11-01 12:55 | ED.UPPEXIN ---
HPI - Extremity Injury (Upper) General Chief Complaint: Extremity Problem,Nontraumatic Stated Complaint: left wrist injury Time Seen by Provider: 11/01/22 12:52 Source: patient Mode of arrival: ambulatory History of Present Illness HPI narrative: 22-year-old female, smoker with a history of ADHD, bipolar, depression presents to the ER with -- cystic swelling over the left wrist. -- Numbness tingling thumb and index finger no history of trauma. Relieving factors: immobilization Exacerbating factors: movement of extremity Related Data Home Medications Medication Instructions Recorded Confirmed No Home Medications 11/01/22 11/01/22 Allergies Allergy/AdvReac Type Severity Reaction Status Date / Time codeine Allergy Mild Hives Verified 11/01/22 13:03 Review of Systems Review of Systems: All systems reviewed & are unremarkable except as noted in HPI and below Constitutional: Constitutional: Reports as per HPI and Reports no additional constitutional complaints Eyes: Eyes: Reports as per HPI and Reports no additional eye complaints ENT: Reports system reviewed and no additional complaints, except as documented and Reports as per HPI Cardiovascular: Cardiovascular: Reports as per HPI and Reports no additional cardiovascular complaints Respiratory: Respiratory: Reports as per HPI and Reports no additional respiratory complaints Gastrointestinal: Gastrointestinal: Reports as per HPI and Reports no additional gastrointestinal complaints Genitourinary: Genitourinary: Reports no additional female genitourinary complaints and Reports as per HPI Musculoskeletal: Musculoskeletal: Reports no additional musculoskeletal complaints and Reports as per HPI Integumentary/Breasts: Skin/Breast: Reports system reviewed and no additional complaints, except as docu and Reports as per HPI Neurologic: Reports system reviewed and no additional complaints, except as documented, Reports as per HPI and Reports numbness Comments: Numbness and tingling of the left index finger and thumb Psychiatric: Psychiatric: Reports no additional psychiatric complaints and Reports as per HPI Endocrine: Endocrine: Reports no additional endocrine complaints and Reports as per HPI Hematologic/Lymphatic: Hematologic/Lymphatic: Reports no additional hematologic/lymphatic complaints and Reports as per HPI Allergic/Immunologic: Allergic/Immunologic: Reports no additional allergic/immunologic complaints and Reports as per HPI PMFSH Past Medical History Medical History Acute insomnia ADHD Bipolar disorder Depression Diarrhea Eustachian tube dysfunction Fatigue Gonorrhea Nicotine dependence, cigarettes, uncomplicated Prior miscarriage with in first trimester, antepartum UTI (urinary tract infection) Viral syndrome Surgical History Surgical History No pertinent past surgical history Family History Family History Mother Healthy female Social History Social History Smoking status: Current every day smoker Tobacco type: cigarettes Alcohol intake: current Alcohol use details: Occasional Substance use: never Lack of Transportation: No Lack of Food: Never True Current Housing: I Have Housing Concerned About Future Housing: No Difficulty Paying Gas/Electric Bills: No Difficulty Paying for Meds: No Currently Unemployed: No Education: Grade School Difficulty w/ Childcare or Family Care: No Exam Const: General: healthy appearing and no acute distress Nutritional Appearance: well nourished Orientation/consciousness: patient oriented x3 Limitations: no limitations HENMT: Head: normal to inspection Ears: external ears normal Face/Nose/Sinus: Normal external nose present Fac
[2022-11-01 13:00] VITALS: BP 131/80; PULSE 98; RESP 16; TEMP 36.4; O2SAT 98
[2022-11-01 13:22] VITALS: BP 131/80; PULSE 98; RESP 16; TEMP 36.4; O2SAT 98
== END 2022-11-01 13:23 | disposition home or self-care (01) ==
PROVIDERS: Emergency Provider Internal Medicine Critical Care Medicine; PCP Nurse Practitioner Family
DX: M67.432 Ganglion, left wrist (principal); F90.9 Attention-deficit hyperactivity disorder, unspecified type; F31.9 Bipolar disorder, unspecified; F17.210 Nicotine dependence, cigarettes, uncomplicated
CPT/HCPCS: 99281

== ENCOUNTER 2022-11-11 13:45 | Outpatient (CLI) | payer OTHER, SELFPAY | END 2022-11-11 13:46 | disposition home or self-care (01) | LOC: CHSLAB 13:46 | PROVIDERS: PCP Nurse Practitioner Family; Visit Provider Nurse Practitioner Family | DX: Z32.01 Encounter for pregnancy test, result positive (principal) | CPT/HCPCS: 36415; 84702 ==

== ENCOUNTER 2023-04-03 16:01 | Emergency (ER) | payer OTHER, SELFPAY ==
[2023-04-03 16:33] VITALS: BP 117/76; PULSE 103; RESP 18; TEMP 36.9; O2SAT 100
== END 2023-04-03 17:20 | disposition left against medical advice (07) ==
LOC: CHSED 04-04 13:49
PROVIDERS: Emergency Provider Emergency Medicine; PCP Nurse Practitioner Family
DX: Z53.21 Procedure and treatment not carried out due to patient leaving prior to being seen by health care provider (principal)
CPT/HCPCS: 99199

== ENCOUNTER 2023-04-05 15:01 | Emergency (ER) | payer OTHER, SELFPAY ==
[2023-04-05 15:01] VITALS: BP 127/75; PULSE 101; RESP 18; TEMP 36.3; O2SAT 96
--- NOTE | 2023-04-05 15:10 | ED.UPPEXIN ---
HPI - Extremity Injury (Upper) General Chief Complaint: Unspecified Stated Complaint: cyst in wrist Time Seen by Provider: 04/05/23 15:04 History of Present Illness HPI narrative: Pt presents with a cyst in her left wrist for several months. Pt was here for same in October and was supposed to get a referral but says she never got it. Pt says it is getting bigger and causing her more pain with occasional tingling in fingers. Related Data Home Medications Medication Instructions Recorded Confirmed aripiprazole 5 mg tablet 5 mg PO DAILY 02/16/23 02/16/23 prazosin 1 mg capsule 1 mg PO DAILY 02/16/23 02/16/23 Allergies Allergy/AdvReac Type Severity Reaction Status Date / Time codeine Allergy Mild Hives Verified 02/16/23 14:11 Review of Systems Review of Systems: All systems reviewed & are unremarkable except as noted in HPI and below PMFSH Past Medical History Medical History Acute insomnia ADHD Bipolar disorder Depression Diarrhea Eustachian tube dysfunction Fatigue Gonorrhea Nicotine dependence, cigarettes, uncomplicated Prior miscarriage with in first trimester, antepartum UTI (urinary tract infection) Viral syndrome Surgical History Surgical History No pertinent past surgical history Family History Family History Mother Healthy female Social History Social History Smoking status: Current every day smoker Tobacco type: cigarettes Alcohol intake: current Alcohol use details: Occasional Substance use: never Lack of Transportation: No Lack of Food: Never True Current Housing: I Have Housing Concerned About Future Housing: No Difficulty Paying Gas/Electric Bills: No Difficulty Paying for Meds: No Currently Unemployed: No Education: Grade School Difficulty w/ Childcare or Family Care: No Living arrangements: with family Exam Const: General: healthy appearing Nutritional Appearance: well nourished Orientation/consciousness: patient oriented x3 Limitations: no limitations Neck: Neck: normal visual inspection and no lymphadenopathy Resp: Effort & Inspection: normal respiratory effort Auscultation: clear to auscultation bilaterally Cardio: Rhythm: regular rhythm GI: GI Palp: Yes Soft to palpation Skin: Rashes: no rashes Wounds: no wounds Neuro: General: patient oriented x3, moves all extremities, no meningeal signs and no focal motor deficits Cranial nerves: Yes Nystagmus not present Speech: normal speech Extrem: Other: small non infected ganglion cyst or volar left wrist Psych: Mental Status: mental status grossly normal Affect: normal affect Attitude: cooperative Course Vital Signs Vital signs: Vital Signs Temperature 97.4 F L 04/05/23 15:01 Pulse Rate 101 H 04/05/23 15:01 Respiratory Rate 18 04/05/23 15:01 Blood Pressure 127/75 04/05/23 15:01 Pulse Oximetry 96 04/05/23 15:01 Oxygen Delivery Room Air 04/05/23 15:01 Temperature 97.4 F L 04/05/23 15:01 Pulse Rate 101 H 04/05/23 15:01 Respiratory Rate 18 04/05/23 15:01 Blood Pressure 127/75 04/05/23 15:01 Pulse Oximetry 96 04/05/23 15:01 Oxygen Delivery Room Air 04/05/23 15:01 Discharge Plan Discharge Clinical Impression: Ganglion cyst Patient Disposition: Home, Self-Care Condition: Stable Instructions: Antibiotic Form, Ganglion Cyst (ED) Prescriptions: New naproxen [Naprosyn] 500 mg tablet 500 mg PO BID Qty: 20 0RF No Action aripiprazole 5 mg tablet 5 mg PO DAILY prazosin 1 mg capsule 1 mg PO DAILY albuterol sulfate [Ventolin HFA] 90 mcg/actuation HFA aerosol inhaler 1 puff inhalation Q4H PRN (Reason: shortness of breath or wheezing) Qty: 8 2RF nor
== END 2023-04-05 15:29 | disposition home or self-care (01) ==
LOC: CHSED 15:19
PROVIDERS: Emergency Provider Emergency Medicine; PCP Nurse Practitioner Family
DX: M67.432 Ganglion, left wrist (principal); F17.210 Nicotine dependence, cigarettes, uncomplicated
CPT/HCPCS: 99283

== ENCOUNTER 2023-05-11 15:26 | Outpatient (NON) | payer OTHER, SELFPAY ==
[2023-05-11 15:44] LABS: Appearance Urine Slightly Cloudy (Clear); Bilirubin Urine Negative (Negative); Blood Urine Trace-Intact (Negative); Color Urine Light Yellow (Yellow); Glucose Urine UA Negative (Negative); Ketones Urine Negative (Negative); Leukocyte Esterase Ur 2+ LEU/UL (Negative); Nitrate Urine Negative (Negative); Protein Urine Negative (Negative); Specific Grav Ur 1.025 (1.010-1.020); Urobilinogen Urine 0.2 mg/dL (0.2-1.0)
[2023-05-11 15:47] LABS: Add Urine Microscopic? YES; RBC Urine 0-2 /hpf (0-2)
[2023-05-11 15:48] LABS: Bacteria Urine 2+ /hpf; Squamous Epithelial Cell Urine Few /hpf (Few)
== END 2023-05-11 15:27 | disposition home or self-care (01) ==
LOC: CHSLAB 15:27
PROVIDERS: Visit Provider Nurse Practitioner Family
DX: R39.9 Unspecified symptoms and signs involving the genitourinary system (principal)
CPT/HCPCS: 81001; 87086; 87088

== ENCOUNTER 2023-05-16 11:32 | Outpatient (CLI) | payer OTHER, SELFPAY ==
--- NOTE | ~2023-05-16 | XR_ITS ---
EXAM: XR abdomen/kub 1V DATE: 05/16/2023 12:01 HISTORY: R10.9 - Unspecified abdominal pain . COMPARISON: None available. FINDINGS: Clear lung bases. Normal bowel gas pattern. No organomegaly. No abnormal abdominal calcifi cation. Regional bones and soft tissues normal for age. IMPRESSION: Unremarkable abdominal radiograph findings. Reviewed, dictated and finalized at location [facility].
[2023-05-16 11:47] LABS: Basophils Absolute Auto 0.03 K/mm3 (0.00-0.10); Basophils Percent Auto 0.3 % (0.0-1.0); Eosinophils Absolute Auto 0.25 K/mm3 (0.02-0.50); Eosinophils Percent Auto 2.8 % (1.0-6.0); Hemoglobin 13.7 g/dL (12.0-15.0); Immature Granulocyte Absolute 0.04 K/mm3 (0.00-0.00); Immature Granulocyte Percent A 0.4 % (0.0-0.0); Lymphocytes Absolute Auto 2.04 K/mm3 (1.10-4.50); Lymphocytes Percent Auto 22.6 % (18.0-42.0); Mean Corpuscular HGB Conc 34.3 g/dL (32.0-36.0); Mean Corpuscular Hemoglobin 31.6 pg (27.0-31.0); Mean Corpuscular Volume 92.2 fL (78.0-102.0); Mean Platelet Volume 10.6 fl (9.2-11.8); Monocytes Absolute Auto 0.48 K/mm3 (0.10-0.90); Monocytes Percent Auto 5.3 % (2.0-11.0); Neutrophils Absolute Auto 6.2 K/mm3 (1.7-7.2); Neutrophils Percent Auto 68.6 % (50.0-70.0); Platelet Count Result 227 K/mm3 (150-420); Red Blood Count 4.34 M/mm3 (4.20-5.40); Red Cell Distribution Width 11.7 % (11.6-14.4)
[2023-05-16 12:38] LABS: Alanine Aminotransferase 28 U/L (14-59); Albumin Level 3.6 g/dL (3.4-5.0); Alkaline Phosphatase 37 U/L (46-116); Anion Gap 7 mmol/L (8-16); Aspartate Amino Transferase 24 U/L (15-37); Bilirubin,Total 0.2 mg/dL (0.00-1.00); Blood Urea Nitrogen 7 mg/dL (7-18); Calcium 8.9 mg/dL (8.5-10.1); Carbon Dioxide 27 mmol/L (21-32); Chloride 105 mmol/L (98-108); Estimated Glomerular Filt Rate > 60; Glucose 76 mg/dL (70-99); Osmolality Calculated 285 mOsm/kg (285-295); Potassium 4.2 mmol/L (3.5-5.1); Sodium 139 mmol/L (136-145); Total Protein 6.5 g/dL (6.4-8.2)
== END 2023-05-16 11:33 | disposition home or self-care (01) ==
LOC: CHSLAB 11:35
PROVIDERS: PCP Nurse Practitioner Family; Visit Provider Nurse Practitioner Family
DX: R10.9 Unspecified abdominal pain (principal)
CPT/HCPCS: 36415; 74018; 80053; 85025

== ENCOUNTER 2023-06-25 15:30 | Emergency (ER) | payer OTHER, SELFPAY ==
--- NOTE | ~2023-06-25 | CT_ITS ---
EXAMINATION: CT abdomen pelvis w con DATE: 06/25/2023 17:34 INDICATION: Right lower quadrant and suprapubic pain TECHNIQUE: Computed tomography (CT) of the abdomen and pelvis was performed with 100 CC Omnipaque 350 intravenous contrast. Automated exposure control and iterative reconstruction technique were employe d. Exam dose: 1066.58 mGy-cm total exam DLP. COMPARISON: 05/16/2023 KUB FINDINGS: Minimal discoid atelectasis or scarring in the dependent lower lobes. No pulmonary infiltra te or consolidation is detected in the included lower lung zones. Normal heart size. No pericardial or pleural effusion. Very small sliding hiatal hernia. The gallbladder is relatively evacuated. No hepatic or splenic, pancreatic, and adrenal or renal spac e-occupying mass lesion is detected. No bile duct or pancreatic duct dilatation. There are multiple splenic calcified granulomas. No urinary tract calculus or hydroureteronephrosis is detected. There is an IUD in expected position within the uterus. Approximately 2.7 cm right ovarian or adnexal cystic lesion is noted. Very small amount of free fluid in the dependent pelvic area, possibly physiologic. Consider pelvic ultrasound correlation as clinic ally appropriate. Normal appendix; no evidence of appendicitis. Mild colonic diverticulosis; no CT evidence of divertic ulitis. No bowel obstruction or intraperitoneal free air. Normal caliber of the abdominal aorta. No intraperitoneal or retroperitoneal or pelvic mass lesion or adenopathy or ascites is noted. Included skeletal structures are unremarkable. IMPRESSION: 2.7 cm right ovarian or adnexal cystic lesion and minimal likely physiologic free fluid in the dependent pelvis IUD within uterus Very small sliding hiatal hernia Normal appendix Mild colonic diverticulosis; no evidence of diverticulitis Reviewed, dictated and finalized at [facility]. Reviewed, dictated and finalized at location A. IMPRESSION: 2.7 cm right ovarian or adnexal cystic lesion and minimal likely p hysiologic free fluid in the dependent pelvis IUD within uterus Very small sliding hiatal hernia Normal appendix Mild colonic diverticulosis; no evidence of diverticulitis
[2023-06-25 15:32] VITALS: BP 135/72; PULSE 86; RESP 18; TEMP 36.1; O2SAT 99
--- NOTE | 2023-06-25 16:00 | ED.FEMALEGU ---
HPI - Female Genitourinary General Chief complaint: Urogenital-Female <Khushbu Cutler PA-C - Last Filed: 06/25/23 18:22> Stated complaint: IUD Concerns <Khushbu Cutler PA-C - Last Filed: 06/25/23 18:22> Time Seen by Provider: 06/25/23 15:45 <Khushbu Cutler PA-C - Last Filed: 06/25/23 18:22> History of Present Illness HPI Narrative: 23-year-old female reports for evaluation negative for generalized low back pain and lower abdominal pain since yesterday. Patient recently had an IUD placed 2 weeks ago and is concerned that she dislodged her IUD. States last night she was having a bowel movement and feel that she strained too hard and caused her IUD to move since she has had persistent back pain and abdominal pain since. She reports nausea but denies vomiting, fever, chills. LMP was 3 weeks ago. She does report vaginal spotting that started last night states this is not abnormal for her given she has irregular periods. She also reports a yellowish and green vaginal discharge for the past 2 weeks since she had the IUD placed. She states she has not had sexual intercourse in the past month and was tested for STDs prior to IUD insertion which walking back negative. She denies dysuria or hematuria, chest pain or shortness of breath. <Khushbu Cutler PA-C - Last Filed: 06/25/23 18:22> Related Data Home medications: Home Medications Medication Instructions Recorded Confirmed aripiprazole 5 mg tablet 5 mg PO DAILY 02/16/23 05/16/23 prazosin 1 mg capsule 1 mg PO DAILY 02/16/23 05/16/23 mirtazapine 15 mg tablet 15 mg PO DAILY 05/11/23 05/16/23 <GIA Lewis Last Filed: 06/25/23 18:22> Allergies/Adverse reactions: Allergies Allergy/AdvReac Type Severity Reaction Status Date / Time codeine Allergy Mild Hives Verified 06/25/23 15:36 <GIA Lewis Last Filed: 06/25/23 18:22> Review of Systems Review of Systems: CONSTITUTIONAL: Denies fever, chills EYES: Denies visual changes, redness, or discharge. ENT: Denies rhinorrhea, congestion, sore throat, or otalgia. CARDIOVASCULAR: Denies chest pain, palpitations, or edema. RESPIRATORY: Denies cough or dyspnea. GASTROINTESTINAL: see HPI GENITOURINARY: Denies dysuria or hematuria. SKIN: Denies rash or itching. MUSCULOSKELETAL: See HPI NEUROLOGIC: Denies headache, numbness, dizziness, or weakness. PSYCHIATRIC: Denies anxiety or depression. <Khushbu Cutler PA-C - Last Filed: 06/25/23 18:22> [facility] Past Medical History Medical History: Medical History Acute insomnia ADHD Bipolar disorder Depression Diarrhea Eustachian tube dysfunction Fatigue Gonorrhea Nicotine dependence, cigarettes, uncomplicated Prior miscarriage with in first trimester, antepartum Urinary tract infection UTI (urinary tract infection) Viral syndrome <Khushbu Cutler PA-C - Last Filed: 06/25/23 18:22> Surgical History Surgical History: Surgical History No pertinent past surgical history <Khushbu Cutler PA-C - Last Filed: 06/25/23 18:22> Family History Family History: Family History Mother Healthy female <Khushbu Cutler PA-C - Last Filed: 06/25/23 18:22> Social History Social History: Social History Smoking status: Current every day smoker Tobacco type: cigarettes Alcohol intake: current Alcohol use details: Occasional Substance use: never Lack of Transportation: No Lack of Food: Never True Current Housing: I Have Housing Concerned About Future Housing: No Difficulty Paying Gas/Electric Bills: No Difficulty Paying for Meds: No Currently Unemployed: No Education: Grade School Difficulty w/ Childcare or Family Care: N
[2023-06-25 16:38] LABS: Appearance Urine Cloudy (Clear); Bacteria Urine 1+ /hpf; Bilirubin Urine Negative (Negative); Blood Urine 2+ (Negative); Color Urine Yellow (Yellow); Glucose Urine UA Negative (Negative); Ketones Urine Trace mg/dL (Negative); Leukocyte Esterase Ur 2+ LEU/UL (Negative); Nitrate Urine Negative (Negative); Non Pathogenic Casts 0-2; Protein Urine Trace mg/dL (Negative); Specific Grav Ur 1.023 (1.001-1.035); Squamous Epithelial Cell Urine Moderate /hpf (Few); pH Urine 5.5 (5.0-9.0)
[2023-06-25] MEDS: ONDANSETRON INJ 4 MG/2 ML VIAL IV PUSH (16:41)
[2023-06-25] MEDS: SODIUM CHLORIDE 0.9% IV 1,000 ML 999 ML IV CONT (16:41)
[2023-06-25 16:43] LABS: Add Urine Microscopic? YES
[2023-06-25] MEDS: KETOROLAC 30 MG/ML VIAL (*BKC) IV PUSH (16:43)
[2023-06-25 16:45] LABS: Alanine Aminotransferase 25 U/L (6-35); Albumin Level 4.2 g/dL (3.5-5.1); Alkaline Phosphatase 34 U/L (38-126); Anion Gap 7 mmol/L (8-16); Aspartate Amino Transferase 27 U/L (14-36); Bilirubin,Total 0.3 mg/dL (0.2-1.3); Blood Urea Nitrogen 9 mg/dL (7-17); Calcium 8.7 mg/dL (8.4-10.2); Carbon Dioxide 23 mmol/L (22-30); Chloride 107 mmol/L (98-107); Estimated CRCL calculation 142 ml/min; Estimated Glomerular Filt Rate > 60; Glucose 90 mg/dL (65-110); Lipase 29 U/L (23-300); Sodium 137 mmol/L (137-145)
[2023-06-25 16:50] LABS: Basophils Percent Auto 0.3 % (0.2-1.2); Eosinophils Absolute Auto 0.3 K/mm3 (0-0.3); Eosinophils Percent Auto 2.8 % (0-4.4); Hemoglobin 14.5 g/dL (12.0-15.0); Immature Granulocyte Absolute 0.03 K/mm3 (0.00-0.031); Immature Granulocyte Percent A 0.3 % (0-0.5); Lymphocytes Absolute Auto 2.73 K/mm3 (0.9-3.2); Mean Corpuscular HGB Conc 33.7 g/dl (32-36); Mean Corpuscular Hemoglobin 31.1 pg (26-34); Mean Corpuscular Volume 92.3 fl (80-100); Monocytes Absolute Auto 0.5 K/mm3 (0.1-0.6); Monocytes Percent Auto 4.8 % (2.6-8.5); Neutrophils Absolute Auto 6.6 K/mm3 (1.3-6.7); Neutrophils Percent Auto 64.8 % (45.5-73.1); Platelet Count Result 223 k/mm3 (150-375); Red Blood Count 4.66 M/mm3 (4.2-5.4); Red Cell Distribution Width 11.7 % (11.5-14.5); White Blood Count 10.1 K/mm3 (4.5-10.0)
[2023-06-25 17:57] VITALS: BP 109/58; PULSE 70; RESP 18; O2SAT 100
== END 2023-06-25 18:42 | disposition home or self-care (01) ==
PROVIDERS: Emergency Provider Physician Assistant; PCP Nurse Practitioner Family
DX: N83.201 Unspecified ovarian cyst, right side (principal); R10.30 Lower abdominal pain, unspecified; F17.200 Nicotine dependence, unspecified, uncomplicated
CPT/HCPCS: 36415; 74177; 80053; 81001; 81025; 83690; 85025; 87070; 87086; 87088; 87491; 87591; 87808; 96361; 96374; 96375; 99284; J1885; J2405; J7030; Q9967

== ENCOUNTER 2023-07-07 11:33 | Emergency (ER) | payer OTHER, SELFPAY ==
--- NOTE | ~2023-07-07 | CT_ITS ---
EXAMINATION: CT abdomen pelvis w con INDICATION: Abdominal pain TECHNIQUE: Computed tomographic images of the abdomen and pelvis were obtained after the administrati on of 100 cc of Omnipaque 350 intravenous contrast. The dose-length product (DLP) was 1097.77 mGy-cm. Automated exposure control and iterative reconstruction technique were employed. COMPARISON: 06/25/2023 FINDINGS: The lung bases are clear. The heart size is normal. Punctate calcifications in an otherwise normal spleen likely represent healed granulomatous disease. The liver, pancreas, gallbladder, and a drenal glands are normal. The kidneys are unremarkable. No pathologically enlarged abdominal or pelvi c lymph nodes are identified. No free intraperitoneal gas or evidence of bowel obstruction. An IUD is present in the uterus. There is a 4 cm cyst of the right adnexa. The appendix is normal. There is a tiny umbilical hernia containing fat. IMPRESSION: 1. No CT correlate for the patient's symptoms. Reviewed, dictated and finalized at location L.
[2023-07-07 11:36] VITALS: BP 130/84; PULSE 94; RESP 15; TEMP 36.6; O2SAT 95
[2023-07-07 12:11] LABS: Basophils Absolute Auto 0.03 K/mm3 (0.00-0.10); Basophils Percent Auto 0.4 % (0.0-1.0); Eosinophils Absolute Auto 0.26 K/mm3 (0.02-0.50); Eosinophils Percent Auto 3.6 % (1.0-6.0); Hematocrit 43.4 % (35.0-49.0); Hemoglobin 14.9 g/dL (12.0-15.0); Immature Granulocyte Absolute 0.02 K/mm3 (0.00-0.00); Immature Granulocyte Percent A 0.3 % (0.0-0.0); Lymphocytes Absolute Auto 1.81 K/mm3 (1.10-4.50); Mean Corpuscular HGB Conc 34.3 g/dL (32.0-36.0); Mean Corpuscular Hemoglobin 31.4 pg (27.0-31.0); Mean Corpuscular Volume 91.4 fL (78.0-102.0); Mean Platelet Volume 10.7 fl (9.2-11.8); Monocytes Percent Auto 5.5 % (2.0-11.0); Neutrophils Absolute Auto 4.7 K/mm3 (1.7-7.2); Neutrophils Percent Auto 65.2 % (50.0-70.0); Platelet Count Result 227 K/mm3 (150-420); Red Blood Count 4.75 M/mm3 (4.20-5.40); Red Cell Distribution Width 11.4 % (11.6-14.4); White Blood Count 7.2 K/mm3 (4.8-10.8)
[2023-07-07 12:25] LABS: Partial Thromboplastin Time 28.1 SEC (23.90-30.70); Prothrombin Time 10.5 Seconds (9.50-12.10)
[2023-07-07 12:26] LABS: Alanine Aminotransferase 43 U/L (14-59); Albumin Level 3.7 g/dL (3.4-5.0); Alkaline Phosphatase 43 U/L (46-116); Anion Gap 9 mmol/L (8-16); Aspartate Amino Transferase 19 U/L (15-37); Bilirubin,Total 0.3 mg/dL (0.00-1.00); Blood Urea Nitrogen 7 mg/dL (7-18); Carbon Dioxide 26 mmol/L (21-32); Chloride 106 mmol/L (98-108); Estimated Glomerular Filt Rate > 60; Glucose 91 mg/dL (70-99); Lipase 17 U/L (16-77); Osmolality Calculated 290 mOsm/kg (285-295); Potassium 3.9 mmol/L (3.5-5.1); Sodium 141 mmol/L (136-145); Total Protein 7.2 g/dL (6.4-8.2)
[2023-07-07] MEDS: SODIUM CHLORIDE 0.9% IV 1,000 ML 999 ML IV CONT (12:30)
[2023-07-07 12:32] LABS: Lactic Acid Reflex 1.3 mmol/L (0.4-2.0)
[2023-07-07] MEDS: ONDANSETRON INJ 4 MG/2 ML VIAL IV PUSH (12:33)
[2023-07-07 12:34] LABS: Calcium 8.8 mg/dL (8.5-10.1)
[2023-07-07] MEDS: KETOROLAC 30 MG/ML VIAL (*BKC) IV PUSH (12:34)
[2023-07-07 12:42] LABS: Appearance Urine Clear (Clear); Bilirubin Urine Negative (Negative); Blood Urine 3+ (Negative); Color Urine Light Yellow (Yellow); Glucose Urine UA Negative (Negative); Ketones Urine Negative (Negative); Leukocyte Esterase Ur 1+ LEU/UL (Negative); Nitrate Urine Negative (Negative); Protein Urine Negative (Negative); Urobilinogen Urine 0.2 mg/dL (0.2-1.0)
[2023-07-07 12:47] LABS: Add Urine Microscopic? YES; Bacteria Urine 1+ /hpf; Squamous Epithelial Cell Urine Moderate /hpf (Few)
[2023-07-07 12:56] LABS: Pregnancy On Board Control Positive; Urine Pregnancy Test Negative
--- NOTE | 2023-07-07 13:37 | ED.ABDPAIN ---
HPI - Abdominal Pain General Chief Complaint: Abdominal Pain Stated Complaint: rlq pain Time Seen by Provider: 07/07/23 11:34 Source: patient and family Mode of arrival: ambulatory Limitations: no limitations History of Present Illness HPI narrative: This is a 23-year-old female that presents with abdominal pain localizing to her right lower quadrant was seen for similar episode at [facility] and had a CT scan which showed a right 2.7cm ovarian cyst, currently no chest pain no shortness of breath no fever chills no dysuria. MD elicited complaint: abdominal pain Onset (ago): hour(s) Pain Consistency: constant Location: RLQ Severity: moderate Pain scale (0-10): 7 Quality: aching Related Data Home Medications Medication Instructions Recorded Confirmed aripiprazole 5 mg tablet (Abilify) 10 mg PO DAILY 02/16/23 07/07/23 prazosin 1 mg capsule 1 mg PO DAILY 02/16/23 07/07/23 mirtazapine 15 mg tablet (Remeron) 15 mg PO DAILY 05/11/23 07/07/23 Allergies Allergy/AdvReac Type Severity Reaction Status Date / Time codeine Allergy Mild Hives Verified 07/07/23 11:53 Review of Systems Review of Systems: All systems reviewed & are unremarkable except as noted in HPI and below PMFSH Past Medical History Medical History Acute insomnia ADHD Bipolar disorder Depression Diarrhea Eustachian tube dysfunction Fatigue Gonorrhea Nicotine dependence, cigarettes, uncomplicated Prior miscarriage with in first trimester, antepartum Urinary tract infection UTI (urinary tract infection) Viral syndrome Surgical History Surgical History No pertinent past surgical history Family History Family History Mother Healthy female Social History Social History Smoking status: Current every day smoker Tobacco type: cigarettes Alcohol intake: current Alcohol use details: Occasional Substance use: never Lack of Transportation: No Lack of Food: Never True Current Housing: I Have Housing Concerned About Future Housing: No Difficulty Paying Gas/Electric Bills: No Difficulty Paying for Meds: No Currently Unemployed: No Education: Grade School Difficulty w/ Childcare or Family Care: No Living arrangements: with family Exam Const: General: healthy appearing Nutritional Appearance: well nourished Orientation/consciousness: patient oriented x3 Limitations: no limitations HENMT: Head: normal to inspection Chest: Chest palpation & inspection: normal inspection of the chest Resp: Effort & Inspection: normal respiratory effort Auscultation: clear to auscultation bilaterally Cardio: Rate: regular rate Rhythm: regular rhythm GI: GI Palp: Yes Soft to palpation and Yes Tenderness to palpation present (GI) Auscultation: normal bowel sounds : General: Yes bladder normal to palpation Skin: General skin exam: normal color Rashes: no rashes Wounds: no wounds Neuro: General: patient oriented x3, moves all extremities and no meningeal signs Extrem: General: normal to inspection Psych: Mental Status: mental status grossly normal Affect: normal affect Course Course Emergency Course: Patient had blood work and that was reviewed and showed no acute abnormalities, urinalysis performed shows that there is a urinary tract infection. CT scan performed shows no acute appendicitis, does have the 2.5cm right ovarian cyst. Did receive Toradol pain medication and after reassessment pain level as improved. Vital Signs Vital signs: Vital Signs Temperature 36.6 C 07/07/23 11:36 Pulse Rate 94 07/07/23 11:36 Respiratory Rate 15 07/07/23 11:36 Blood Pressure 130/84 07/07/23 11:36 Pulse Oximetry 95 07/07/23 11:36 Oxygen Delivery Room Air
[2023-07-07 14:22] VITALS: BP 118/97; PULSE 73; RESP 20; TEMP 36.9; O2SAT 98
--- NOTE | 2023-07-09 14:51 | PC.NURSE ---
final urine culture , not indicative of uti
== END 2023-07-07 14:27 | disposition home or self-care (01) ==
PROVIDERS: Emergency Provider Emergency Medicine; PCP Nurse Practitioner Family
DX: N30.00 Acute cystitis without hematuria (principal); R10.31 Right lower quadrant pain; F17.210 Nicotine dependence, cigarettes, uncomplicated; Z79.899 Other long term (current) drug therapy
CPT/HCPCS: 36415; 74177; 80053; 81001; 81025; 83605; 83690; 85025; 85610; 85730; 87086; 87088; 96361; 96374; 96375; 99284; J1885; J2405; J7030; Q9967

== ENCOUNTER 2023-07-31 18:52 | Emergency (ER) | payer OTHER, SELFPAY ==
--- NOTE | ~2023-07-31 | XR_ITS ---
EXAM: XR abdomen/kub 1V DATE: 07/31/2023 19:56 HISTORY: iud review. RLQ PAIN SINCE IUD INSERTION 2 MONTHS AGO. . COMPARISON: None available. FINDINGS: Clear lung bases. Normal bowel gas pattern. No organomegaly. No abnormal abdominal calcifi cation. Regional bones and soft tissues normal for age. IUD projecting over the pelvic ring. IMPRESSION: IUD appears to be in good position. Otherwise normal abdominal radiograph findings. Consider pelvic u ltrasound for further evaluation. Reviewed, dictated and finalized at location K. IMPRESSION: IUD appears to be in good position. Otherwise normal abdominal radiograph findi ngs. Consider pelvic ultrasound for further evaluation.
[2023-07-31 18:53] VITALS: BP 138/88; PULSE 95; RESP 19; TEMP 36.8; O2SAT 99
[2023-07-31 19:00] VITALS: BP 138/88; PULSE 97; RESP 20; O2SAT 97
[2023-07-31 19:16] LABS: Bilirubin Urine Negative (Negative); Blood Urine 1+ (Negative); Color Urine Yellow (Yellow); Glucose Urine UA Negative (Negative); Ketones Urine Negative (Negative); Leukocyte Esterase Ur Trace LEU/UL (Negative); Nitrate Urine Negative (Negative); Protein Urine Negative (Negative); Urobilinogen Urine 0.2 mg/dL (0.2-1.0)
[2023-07-31 19:30] LABS: Appearance Urine Cloudy (Clear)
[2023-07-31 19:31] LABS: Add Urine Microscopic? YES; Amorphous Sediment Urine Heavy; Bacteria Urine 1+ /hpf; Mucus Urine Moderate /lpf; RBC Urine 0-2 /hpf (0-2); Squamous Epithelial Cell Urine Moderate /hpf (Few); WBC Urine 0-3 /hpf (0-3)
[2023-07-31 19:37] LABS: Pregnancy On Board Control Positive; Urine Pregnancy Test Negative
[2023-07-31] MEDS: KETOROLAC (*BKC) 60 MG/2 ML VIAL IM (19:57)
--- NOTE | 2023-07-31 20:23 | ED.ABDPAIN ---
HPI - Abdominal Pain General Chief Complaint: Urogenital-Female Stated Complaint: IUD complications Time Seen by Provider: 07/31/23 18:54 Source: patient and family Mode of arrival: ambulatory Limitations: no limitations History of Present Illness HPI narrative: patient is a 23-year-old female with an IUD and desires to have it taken out. She has been to the OBGYN and they are not taking it out as they are allowing it to settle in place at this time. She is having right pelvic pain to right middle pelvic pain on and off for a few months. She has been noted to have ovarian cysts as well in the past. She has had multiple CT scans in the past few months. No major findings found. She was to have an ultrasound done but canceled it on her own as the pain went away recently. She is back in the ER at this time with the same pains. She has had the pain happens at the end of her work shift typically. MD elicited complaint: abdominal pain Pertinent past history: none Onset (ago): hour(s) Pain Consistency: intermittent Location: RLQ Severity: moderate Pain scale (0-10): 8 Quality: cramping and sharp Radiation: none Migration to: no migration Exacerbating factors: nothing Relieving factors: nothing Context: confirms other ( She relates it to when IUD was placed when this all started) Associated symptoms: denies other symptoms Related Data Home Medications Medication Instructions Recorded Confirmed aripiprazole 5 mg tablet (Abilify) 10 mg PO DAILY 02/16/23 07/31/23 mirtazapine 15 mg tablet (Remeron) 15 mg PO DAILY 05/11/23 07/31/23 Allergies Allergy/AdvReac Type Severity Reaction Status Date / Time codeine Allergy Mild Hives Verified 07/31/23 19:03 Review of Systems Review of Systems: All systems reviewed & are unremarkable except as noted in HPI and below Constitutional: Constitutional: Reports no additional constitutional complaints Eyes: Eyes: Reports no additional eye complaints ENT: Reports system reviewed and no additional complaints, except as documented Cardiovascular: Cardiovascular: Reports no additional cardiovascular complaints Respiratory: Respiratory: Reports no additional respiratory complaints Gastrointestinal: Gastrointestinal: Reports no additional gastrointestinal complaints Genitourinary: Genitourinary: Reports no additional female genitourinary complaints Musculoskeletal: Musculoskeletal: Reports no additional musculoskeletal complaints Integumentary/Breasts: Skin/Breast: Reports system reviewed and no additional complaints, except as docu Neurologic: Reports system reviewed and no additional complaints, except as documented Psychiatric: Psychiatric: Reports no additional psychiatric complaints Endocrine: Endocrine: Reports no additional endocrine complaints Hematologic/Lymphatic: Hematologic/Lymphatic: Reports no additional hematologic/lymphatic complaints Allergic/Immunologic: Allergic/Immunologic: Reports no additional allergic/immunologic complaints PMFSH Past Medical History Medical History Acute insomnia ADHD Bipolar disorder Depression Diarrhea Eustachian tube dysfunction Fatigue Gonorrhea Nicotine dependence, cigarettes, uncomplicated Prior miscarriage with in first trimester, antepartum Urinary tract infection UTI (urinary tract infection) Viral syndrome Surgical History Surgical History No pertinent past surgical history Family History Family History Mother Healthy female Social History Social History Smoking status: Current every day smoker Tobacco type: cigarettes Alcohol intake: current Alcohol use details: Occasional Substance use: never Lack of Transportation: No Lack of Food: Never True Current Housing:
[2023-07-31] MEDS: traMADol HCL (*CRX) 50 MG TABLET PO (20:43)
[2023-07-31 20:45] VITALS: BP 120/86; PULSE 80; RESP 20; TEMP 36.8; O2SAT 97
== END 2023-07-31 20:54 | disposition home or self-care (01) ==
PROVIDERS: Emergency Provider Emergency Medicine; PCP Nurse Practitioner Family
DX: R10.2 Pelvic and perineal pain (principal); Z97.5 Presence of (intrauterine) contraceptive device; F17.210 Nicotine dependence, cigarettes, uncomplicated
CPT/HCPCS: 74018; 81001; 81025; 96372; 99283; A9270; J1885

== ENCOUNTER 2023-09-02 10:15 | Outpatient (CLI) | payer OTHER, SELFPAY ==
[2023-09-02 10:59] LABS: Influenza A QL RT-PCR Negative (Negative); Influenza B QL RT-PCR Negative (Negative); SARS-CoV-2 RNA PCR Negative (Negative)
[2023-09-02 11:03] LABS: RSV RNA, RT-PCR Negative (Negative)
== END 2023-09-02 10:16 | disposition home or self-care (01) ==
LOC: CHSLAB 10:16
PROVIDERS: PCP Nurse Practitioner Family; Visit Provider Nurse Practitioner Family
DX: R05.9 Cough, unspecified (principal)
CPT/HCPCS: 87637

== ENCOUNTER 2024-06-04 10:11 | Outpatient (CLI) | payer SELFPAY ==
--- NOTE | ~2024-06-04 | XR_ITS ---
XR foot RT min 3V Ordering provider: Melisa Feliz APRN History: . LATERAL TO MID FOOT AND ANKLE PAIN S/P MISTEP OF STAIRS . Comparison: None. FINDINGS: BONES: No acute fracture or dislocation. JOINT SPACES: Normal. No tarsal coalition. SOFT TISSUES: Normal. IMPRESSION: No acute osseous abnormality of the right foot. Reviewed, dictated and finalized at location A.
--- NOTE | ~2024-06-04 | XR_ITS ---
XR ankle RT min 3V Ordering provider: Melisa Feliz APRN History: . LATERAL TO MID FOOT AND ANKLE PAIN S/P MISTEP OF STAIRS . Comparison: June 04, 2024 FINDINGS: BONES: No acute fracture or dislocation. JOINT SPACES: Normal. SOFT TISSUES: Normal. IMPRESSION: No acute osseous abnormality of the right ankle. Reviewed, dictated and finalized at location A.
== END 2024-06-04 10:12 | disposition home or self-care (01) ==
LOC: CHSIMG 10:13
PROVIDERS: PCP Nurse Practitioner Family; Visit Provider Nurse Practitioner Family
DX: M25.571 Pain in right ankle and joints of right foot (principal)
CPT/HCPCS: 73610; 73630

== ENCOUNTER 2024-06-07 12:48 | Emergency (ER) | payer OTHER, SELFPAY ==
[2024-06-07 12:50] VITALS: BP 131/65; PULSE 91; RESP 18; TEMP 36.6; O2SAT 98
--- NOTE | 2024-06-07 13:16 | ED.LOWEXIN ---
HPI - Extremity Injury (Lower) General Chief Complaint: Extremity Injury, Lower Stated Complaint: right foot injury Time Seen by Provider: 06/07/24 12:59 History of Present Illness HPI Narrative: 24-year-old female presents emergency room for evaluation of right ankle pain. Patient states she was walking down the stairs yesterday and rolled her ankle. Was seen at her PCP office yesterday and had imaging completed of her ankle and foot. Patient states that she was never informed of the results, and believes the pain is getting worse. Patient reports numbness and tingling he coolness to the touch her right foot. Patient has been keeping her ankle in a compression sleeve in using crutches. States the pain is getting worse. Related Data Home Medications Medication Instructions Recorded Confirmed aripiprazole 5 mg tablet (Abilify) 10 mg PO DAILY 02/16/23 06/04/24 Allergies Allergy/AdvReac Type Severity Reaction Status Date / Time codeine Allergy Mild Hives Verified 06/04/24 09:45 Review of Systems Review of Systems: ROS unremarkable except for noted in HPI PMFSH Past Medical History Medical History Acute insomnia ADHD Bipolar disorder Depression Diarrhea Eustachian tube dysfunction Fatigue Gonorrhea Nicotine dependence, cigarettes, uncomplicated Prior miscarriage with in first trimester, antepartum Urinary tract infection UTI (urinary tract infection) Viral syndrome Surgical History Surgical History No pertinent past surgical history Family History Family History Mother Healthy female Social History Social History Smoking status: Current every day smoker Tobacco type: e-cigarettes/vaping Alcohol intake: current Alcohol use details: Occasional Substance use: never Lack of Transportation: No Lack of Food: Never True Current Housing: I Have Housing Concerned About Future Housing: No Difficulty Paying Gas/Electric Bills: No Difficulty Paying for Meds: No Currently Unemployed: No Education: Grade School Difficulty w/ Childcare or Family Care: No Living arrangements: with family Exam Narrative: GENERAL: Well-appearing, well-nourished, no physical limitations, and in no acute distress, morbidly obese HEAD: Normocephalic, atraumatic. EYES: Conjunctivae normal, PERRLA and EOMI. CHEST: Clear to auscultation. No respiratory distress. No wheezes rales or rhonchi. No tenderness. HEART: Regular rate and rhythm. No murmur heard. Normal peripheral pulses. EXTREMITIES: Right ankle: mild TTP inferiorly to lateral malleolus. No obvious soft tissue swelling. Distal pulses present. Full range of motion to ankle, no joint laxity SKIN: Warm, dry, no rash. No noted wounds NEURO: No focal deficits. Alert and oriented x3. MAEW. CN's II-XI intact bilaterally, normal gait PSYCH: Cooperative. Normal mood and affect. Course Vital Signs Vital signs: Vital Signs Temperature 36.6 C 06/07/24 12:50 Pulse Rate 91 06/07/24 12:50 Respiratory Rate 18 06/07/24 12:50 Blood Pressure 131/65 06/07/24 12:50 Pulse Oximetry 98 06/07/24 12:50 Oxygen Delivery Room Air 06/07/24 12:50 Temperature 36.6 C 06/07/24 12:50 Pulse Rate 91 06/07/24 12:50 Respiratory Rate 18 06/07/24 12:50 Blood Pressure 131/65 06/07/24 12:50 Pulse Oximetry 98 06/07/24 12:50 Oxygen Delivery Room Air 06/07/24 12:50 Discharge Plan Discharge Clinical Impression: Sprain of ankle, right Patient Disposition: Home, Self-Care Condition: Stable Instructions: Antibiotic Form Prescriptions: New naproxen [Naprosyn] 500 mg tablet 500 mg PO BID Qty: 20 0RF No Action aripiprazole [Abilify] 5 mg tablet 10 mg PO
== END 2024-06-07 14:55 | disposition home or self-care (01) ==
PROVIDERS: Emergency Provider Nurse Practitioner Family; PCP Nurse Practitioner Family
DX: S93.401A Sprain of unspecified ligament of right ankle, initial encounter (principal); F90.9 Attention-deficit hyperactivity disorder, unspecified type; F31.9 Bipolar disorder, unspecified; F17.290 Nicotine dependence, other tobacco product, uncomplicated; Z87.440 Personal history of urinary (tract) infections; Z79.3 Long term (current) use of hormonal contraceptives; Z79.899 Other long term (current) drug therapy; X50.9XXA Other and unspecified overexertion or strenuous movements or postures, initial encounter
CPT/HCPCS: 99283

== ENCOUNTER 2024-10-10 17:51 | Emergency (ER) | payer SELFPAY ==
--- NOTE | ~2024-10-10 | XR_ITS ---
EXAMINATION: XR shoulder RT min 2V DATE: 10/10/2024 18:22 INDICATION: Right shoulder pain. TECHNIQUE: 4 views of right shoulder were obtained. COMPARISON: None. FINDINGS: Alignment is normal. No fracture. Joint spaces are normal. IMPRESSION: 1. Normal right shoulder. Reviewed, dictated and finalized at location A. [employer]CH[employer]ICIAN IMPRESSION: 1. Normal right shoulder.
--- NOTE | 2024-10-10 17:55 | ED.UPPEXIN ---
HPI - Extremity Injury (Upper) General Chief Complaint: Extremity Injury, Upper Stated Complaint: right shoulder pain Source: patient Mode of arrival: ambulatory Limitations: no limitations History of Present Illness HPI narrative: 24-year-old female with a history of smoker,ADHD, bipolar presents to the ED with -- right shoulder pain which got worse after attempting to lift her truck tire. She right shoulder pain chronically. Decreased range of motion. The patient is right handed. 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 No other injuries noted. complaint: injury to: right and shoulder Onset (ago): day(s) Other Extremity Injury: Right: shoulder Other injuries: none Handedness: right Place: home Severity: moderate Relieving factors: immobilization Exacerbating factors: movement of extremity Associated symptoms: denies other symptoms Related Data Home Medications ?Medication ?Instructions ?Recorded ?Confirmed ?Last Taken ?Type aripiprazole 5 mg tablet (Abilify) 10 mg PO DAILY 02/16/23 10/10/24 1 Day Ago History ~04/04/23 Allergies Allergy/AdvReac Type Severity Reaction Status Date / Time codeine Allergy Mild Hives Verified 10/10/24 18:07 Review of Systems Review of Systems: All systems reviewed & are unremarkable except as noted in HPI and below PMFSH Past Medical History Medical History Urinary tract infection Viral syndrome Eustachian tube dysfunction UTI (urinary tract infection) Diarrhea Fatigue Prior miscarriage with in first trimester, antepartum Gonorrhea Nicotine dependence, cigarettes, uncomplicated Acute insomnia Bipolar disorder Depression ADHD Surgical History Surgical History No pertinent past surgical history Family History Family History Mother Healthy female Social History Social History Smoking status: Current every day smoker Tobacco type: e-cigarettes/vaping Alcohol intake: current Alcohol use details: Occasional Substance use: never Lack of Transportation: No Lack of Food: Never True Current Housing: I Have Housing Concerned About Future Housing: No Difficulty Paying Gas/Electric Bills: No Difficulty Paying for Meds: No Currently Unemployed: No Education: Grade School Difficulty w/ Childcare or Family Care: No Living arrangements: with family Exam Narrative: Vitals are stable Const: General: no acute distress Nutritional Appearance: well nourished Orientation/consciousness: patient oriented x3 Limitations: no limitations HENMT: Head: normal to inspection Ears: external ears normal Face/Nose/Sinus: Normal external nose present Face and sinus: normal facial exam Mouth: Yes Normal oral and palatal mucosa present Throat: posterior oropharynx normal Eyes: Conjunctivae: conjunctivae normal Pupils: Equal, round and reactive pupils present EOM: EOMs intact bilaterally Direct Ophthalmoscopy: no photophobia Neck: Neck: normal visual inspection, no lymphadenopathy and no meningeal signs Chest: Chest palpation & inspection: normal inspection of the chest Resp: Effort & Inspection: normal respiratory effort Auscultation: clear to auscultation bilaterally Cardio: Rate: regular rate Rhythm: regular rhythm GI: GI Palp: Yes Soft to palpation Auscultation: normal bowel sounds : General: Yes no CVA tenderness Back/Spine/Pelvis: Back: no CVA tenderness Skin: General skin exam: normal color Rashes: no rashes Wounds: no wounds Neuro: General: patient oriented x3, moves all extremities, no meningeal signs, no focal motor deficits and CN's II-XI intact bilaterally Extrem: Other: right shoulder-- tenderness on palpation. Decreased range of motion. No tenderness over the subacromial/ bicipital tendon. Psych: Mental Status: mental status grossly normal Affect: normal affect Attitude: cooperative Course Course Emergency Course: Right shoulder pain-- X-ray does not show any dislocation/fracture. Vital Signs Vital signs: Vital Signs Temperature 36.6 C 10/10/24 17:56 Pulse Rate 70 10/10/24 17:56 Respiratory Rate 18 10/10/24 17:56 Blood Pressure 120/75 10/10/24 17:56 Pulse Oximetry 100 10/10/24 17:56 Oxygen Delivery Room Air 10/10/24 17:56 Temperature 36.6 C 10/10/24 17:56 Pulse Rate 70 10/10/24 17:56 Respiratory Rate 18 10/10/24 17:56 Blood Pressure 120/75 10/10/24 17:56 Pulse Oximetry 100 10/10/24 17:56 Oxygen Delivery Room Air 10/10/24 17:56 MDM - Extremity Injury (Upper) MDM Narrative Medical decision making narrative: Right shoulder pain Differential Diagnosis Differential diagnosis: Likely dislocation of shoulder and fracture of humerus Discharge Plan Discharge Clinical Impression: Acute shoulder pain Condition: Stable Instructions: Shoulder Sprain (ED) Patient Language: Marshallese Prescriptions: New diclofenac sodium 50 mg tablet,delayed release (DR/EC) 50 mg PO Q12H PRN (Reason: pain) Qty: 20 0RF Discontinued naproxen [Naprosyn] 500 mg tablet 500 mg PO BID Qty: 20 0RF No Action aripiprazole [Abilify] 5 mg tablet 10 mg PO DAILY norethindrone (contraceptive) 0.35 mg tablet 0.35 mg PO DAILY Qty: 84 3RF Rx Instructions: Must be taken at the same time everyday (within 2 hours) Follow-up/Referrals: Tiffany Castelan NP [Primary Care Provider] - Time of Disposition: 18:28
[2024-10-10 17:56] VITALS: BP 120/75; PULSE 70; RESP 18; TEMP 36.6; O2SAT 100
[2024-10-10 18:43] VITALS: BP 126/74; PULSE 77; RESP 20; TEMP 36.7; O2SAT 99
--- NOTE | 2024-10-10 18:54 | PC.NURSE ---
pt refused urine sample states she can not go
== END 2024-10-10 18:51 | disposition home or self-care (01) ==
LOC: CHSED 18:23
PROVIDERS: Emergency Provider Internal Medicine Critical Care Medicine; PCP Nurse Practitioner Family
DX: M25.511 Pain in right shoulder (principal); F17.290 Nicotine dependence, other tobacco product, uncomplicated
CPT/HCPCS: 73030; 99283; A4565

== ENCOUNTER 2025-10-21 18:39 | Emergency (ER) | payer SELFPAY ==
[2025-10-21 18:39] VITALS: BP 120/70; PULSE 80; RESP 14; TEMP 36.7; O2SAT 99
--- NOTE | 2025-10-21 18:53 | ED.EAR ---
HPI - Ear Problem General Chief complaint: Ear Stated complaint: right ear pain and drainage Time Seen by Provider: 10/21/25 18:52 Source: patient and family Mode of arrival: ambulatory Limitations: no limitations History of Present Illness HPI Narrative: This is a 25-year-old female with history of asthma presents with sinus congestion and drainage with bilateral ear pressure no fever chills no nausea vomiting no shortness of breath or audible wheezing symptoms started approximately 2 weeks prosper. Complaint: ear pain Duration: constant Severity: mild Relieving factors: nothing Exacerbating factors: palpation Related Data Home Medications ?Medication ?Instructions ?Recorded ?Confirmed ?Last Taken ?Type No Home Medications 10/22/24 10/22/24 Unknown History Allergies Allergy/AdvReac Type Severity Reaction Status Date / Time codeine Allergy Mild Hives Verified 10/21/25 18:55 Review of Systems Review of Systems: All systems reviewed & are unremarkable except as noted in HPI and below PMFSH Past Medical History Medical History Urinary tract infection Viral syndrome Eustachian tube dysfunction UTI (urinary tract infection) Diarrhea Fatigue Prior miscarriage with in first trimester, antepartum Gonorrhea Nicotine dependence, cigarettes, uncomplicated Acute insomnia Bipolar disorder Depression ADHD Surgical History Surgical History No pertinent past surgical history Family History Family History Mother Healthy female Social History Social History Smoking status: Current every day smoker Tobacco type: e-cigarettes/vaping Alcohol intake: current Alcohol use details: Occasional Substance use: never Lack of Transportation: No Lack of Food: Never True Current Housing: I Have Housing Concerned About Future Housing: No Difficulty Paying Gas/Electric Bills: No Difficulty Paying for Meds: No Currently Unemployed: No Education: Grade School Difficulty w/ Childcare or Family Care: No Living arrangements: with family Exam Const: General: healthy appearing Nutritional Appearance: well nourished Orientation/consciousness: patient oriented x3 HENMT: Other: Frontal and maxillary sinus tenderness with palpation with bilateral ear pressure with bilateral inflamed and erythematous nasal turbinates. Eyes: Conjunctivae: conjunctivae normal Pupils: Equal, round and reactive pupils present Neck: Neck: normal visual inspection Chest: Chest palpation & inspection: normal inspection of the chest Resp: Effort & Inspection: normal respiratory effort Auscultation: clear to auscultation bilaterally Course Course Emergency Course: Medical decision making narrative: The patient was evaluated by myself in the emergency department. History obtained from the patient who is an independent historian physical exam performed witnessed by nurse and tech. The patient received 20mg p.o. prednisone and Zithromax antibiotic. Repeat assessment: Patient doing well on repeat exam with no acute distress Symptoms stable since arrival to the emergency department Repeat vital stable Patient agrees with discussion and after shared medical decision-making and agrees with discharge All questions answered to the patient's satisfaction Follow-up in 3 to 5 days with primary care physician. Vital Signs Vital signs: Vital Signs Temperature 36.7 C 10/21/25 18:39 Pulse Rate 80 10/21/25 18:39 Respiratory Rate 14 10/21/25 18:39 Blood Pressure 120/70 10/21/25 18:39 Pulse Oximetry 99 10/21/25 18:39 Oxygen Delivery Room Air 10/21/25 18:39 Temperature 36.7 C 10/21/25 18:39 Pulse Rate 80 10/21/25 18:39 Respiratory Rate 14 10/21/25 18:39 Blood Pressure 120/70 10/21/25 18:39 Pulse Oximetry 99 10/21/25 18:39 Oxygen Delivery Room Air 10/21/25 18:39 MDM Differential Diagnosis Differential Diagnosis: Sinusitis Critical Care Time Critical Care Time Critical Care Time: No Discharge Plan Discharge Clinical Impression: Sinusitis Qualifiers: Sinusitis location: maxillary Chronicity: acute Recurrence: non-recurrent Qualified Code(s): J01.00 - Acute maxillary sinusitis, unspecified Patient Disposition: Home Condition: Stable Instructions: Antibiotic Form Additional Instructions: Take medication as prescribed and follow with primary care physician. Can take [id number] Zyrtec daily x1 week. Patient Language: French Prescriptions: No Action No Home Medications Follow-up/Referrals: Tiffany Castelan NP [Primary Care Provider, [facility]] Time of Disposition: 18:57
[2025-10-21] MEDS: AZITHROMYCIN 250 MG TABLET 500 MG PO (19:09)
--- OUTSIDE RECORDS SUMMARY | 2025-10-21 19:11 | XMS_ITS | Data Portability ---
Author Organization [facility] [place] Address [address] [place] [address] Care Team Providers Care Berry Planter Name Role Phone OSVALDO BOSS Primary Care Provider [phone] Assessment No assessment recorded. Plan of Treatment Reminders Order Date Submit Date Provider Last Modified By Organization Details Last Modified Time Details Appointments None recorded. Lab test, urine 2022 023 [place] [facility] [address], [address], [place], [address], 12:18:38 Referral None recorded. Procedures None recorded. Surgeries None recorded. Imaging None recorded. Medication Orders None recorded. Patient TargetsNo targets recorded. Patient InstructionsNo instructions recorded. Reason for Referral None Reported. Results Created Date Observation Date Name Description Value Unit Range Abnormal Flag Note LastModifiedBy Organization Detail LastModifiedTime 06/13/2006/13/2023 pregn soni test, urine HCG negati ve Not Available [place] [address], [place], [address], 06/13/2023 12:18:23 06/26/20 25 06/26/2025 BHCG, QUANT ITATI VE B-HCG <0.2 mIU/m L 0.0-4. 9 This assay was perfo rmed using [employer] reage nts and test kits. Value s obtai rafael with other assay metho ds or kits canno t be used inter dumas eably . Refer ence Range s: Non-p regna nt, preme nopau miguel a women : 0.0-4 .9 mIU/m L Postm enopa usal women : 0.0-7 .0 mIU/m L Katie l Pregn soni: Gesta rickie l Age bHCG Conc. - mIU/m L 3 Weeks 5.8 - 71.7 4 Weeks 9.5 - 750 5 Weeks 217-7 138 6 Weeks 158 - 31,79 5 7 Weeks 3,697 - 162,5 63 8 Weeks 32,06 5 - 149,5 71 9 Weeks 63,80 3 - 151,4 10 10 Weeks 46,50 9 - 186,9 77 12 Weeks 27,83 2 - 210,6 12 14 Weeks 13,95 0 - 62,53 0 15 Weeks 12,03 9 - 70,97 1 16 Weeks 9,040 - 56,45 1 17 Weeks 8,175 - 55,86 8 18 Weeks 8,099 - 58,[address] [facility] (Lab) [address], [place], [address], 06/27/2025 06:39:23 07/22/20 25 07/22/2025 BHCG, QUANT ITATI VE B-HCG <0.2 mIU/m L 0.0-4. 9 This assay was perfo rmed using [employer] reage nts and test kits. Value s obtai rafael with other assay metho ds or kits canno t be used inter dumas eably . Refer ence Range s: Non-p regna nt, preme nopau miguel a women : 0.0-4 .9 mIU/m L Postm enopa usal women : 0.0-7 .0 mIU/m L Katie l Pregn soni: Gesta rickie l Age bHCG Conc. - mIU/m L 3 Weeks 5.8 - 71.7 4 Weeks 9.5 - 750 5 Weeks 217-7 138 6 Weeks 158 - 31,79 5 7 Weeks 3,697 - 162,5 63 8 Weeks 32,06 5 - 149,5 71 9 Weeks 63,80 3 - 151,4 10 10 Weeks 46,50 9 - 186,9 77 12 Weeks 27,83 2 - 210,6 12 14 Weeks 13,95 0 - 62,53 0 15 Weeks 12,03 9 - 70,97 1 16 Weeks 9,040 - 56,45 1 17 Weeks 8,175 - 55,86 8 18 Weeks 8,099 - 58,[address] [facility] (Lab) [address], [place], [address], 07/23/2025 06:34:22 Result Notes None recorded. Procedures Surgical History Date Name Laterality Status Provider Name and Address Organization Details Recorded Time 3 IUD Removal completed Herbie Gar MD [address], [place], [address], [facility] 08/10/2023 19:00:05 3 IUD Insertion completed Herbie Gar MD [address], [place], [address], [facility] 06/13/2023 12:30:00 Imaging Results None recorded. Procedure Notes None recorded. Medical Equipment None Reported. Allergies Allergen ID Allergen Name Allergen Category Reaction Reaction Severity Criticality Documentation Date Start Date Code Code System Note Provider Name and Address Organization Details Recorded Time 35991 corticore alisha ovine triflutat e medicatio n Not available Not available Not available 06/04/2023 99294 RxNorm Yamilka [facility] 12:10:35 32790 codeine medicatio n hives Not available Not available 06/04/2023 2670 RxNorm Yamilka [facility] 12:10:28 Medications Name Sig Start Date Stop Date Status Note LastModified by Organization Details LastModified Time Mirena 21 mcg/24 hr (up to 8 years) 52 mg intrauterin e device Take by intrauter ine route. 08/10 completed Not Available Not Available Not Available tramadol 50 mg tablet active Not Available Not Available No t Available promethazin e 25 mg tablet active Not Available Not Available Not Available mupirocin 2 % topical ointment active Not Available Not Available Not Available diclofenac sodium 50 mg tablet,aiden yed release active Not Available Not Available Not Available ibuprofen 600 mg tablet active Not Available Not Available Not Available nitrofurant oin monohydrate /macrocryst als 100 mg capsule active Not Available Not Available Not Available Vitals Date Recorded Body height Body mass index (BMI) Body weight Systolic And Diastolic Provider Name and Address Organization Details Last Updated DateTime 06/04/2023 165.1 cm 35.8 kg/m2 23110.36 g 124/76 mm[Hg] [facility] 06/04/2023 12:10:18 Date Recorded Body height Body mass index (BMI) Body weight Systolic And Diastolic Provider Name and Address Organization Details Last Updated DateTime 06/13/2023 165.1 cm 35.8 kg/m2 32026.36 g 119/77 mm[Hg] [facility] 06/13/2023 12:05:15 Date Recorded Body height Body mass index (BMI) Body weight Systolic And Diastolic Provider Name and Address Organization Details Last Updated DateTime 07/14/2023 165.1 cm 36.4 kg/m2 13763.73 g 111/76 mm[Hg] [facility] 07/14/2023 11:58:37 Date Recorded Body height Body mass index (BMI) Body weight Systolic And Diastolic Provider Name and Address Organization Details Last Updated DateTime 08/10/2023 165.1 cm 36.1 kg/m2 88160.54 g 118/68 mm[Hg] [facility] 08/10/2023 18:30:10 Social History Question Answer Notes LastModified by Organizat ion Details LastModified Time Tobacco Smoking Status Current Every Day Smoker Edel Masterson [facility] 06/13/2023 11:49:12 How Many Years Have You Consumed Alcohol? 7 Information not available 06/04/2023 Are You Blind Or Do You Have Difficulty Seeing? No Information n ot available 06/04/2023 What Is Your Level Of Caffeine Consumption? Heavy Information not available 06/04/2023 In The 14 Days Before Symptom Onset, Have You Had Close Contact With A Laboratory-confirm ed COVID-19 While That Case Was Ill? No Information n ot available 06/04/2023 In The 14 Days Before Symptom Onset, Have You Had Close Contact With A Person Who Is Under Investigation For COVID-19 While That Person Was Ill? No Information not available 06/04/2023 Have You Been To An Area Known To Be High Risk For COVID-19? No Information not available 06/04/2023 Are You Deaf Or Do You Have Serious Difficulty Hearing? No Information not available 06/04/2023 What Type Of Diet Are You Following? REGULAR Information n ot available 06/04/2023 What Is The Highest Grade Or Level Of School You Have Completed Or The Highest Degree You Have Received? [id number] Information not available 06/04/2023 Are There Any Guns Present In Your Home? No Information not available 06/04/2023 Do You Use Protection During Sex? Usually Information not available 06/04/2023 Do You Use Your Seat Belt Or Car Seat Routinely? Yes Information not available 06/04/2023 Do You Have Smoke And Carbon Monoxide Detectors In Your Home? Yes Information not available 06/04/2023 At What Age Did You Start Smoking Tobacco? 16 Information not available 06/04/2023 How Much Tobacco Do You Smoke? 1 PPD Information not available 06/04/2023 Do You Use Sunscreen Routinely? No Information not available 06/04/2023 How Many Years Have You Smoked Tobacco? 7 Information not available 06/04/2023 Have You Used IV Drugs? No Information not available 06/04/2023 Sex: Unknown Functional Status Question Answer Note LastModified by Organizat ion Details LastModified Time Do you use any illicit or recreational drugs? Yes Information not available 06/04/2023 What is your level of alcohol consumption? Occasional Information not available 06/04/2023 Are you able to walk independently without assistance or assistive devices? 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 Occasional Information not available 06/04/2023 Mental Status Question Answer Note LastModified by Organization D etails LastModified Time Do you feel stressed (tense, restless, nervous, or anxious, or unable to sleep at night)? [id number] Information not available 06/04/2023 Family History Relationship Description Onset Age of this Age Resolved Age Notes LastModified by Organization Details LastModified Time Mother Anxiety disorder Not available 2022 12:02:28 Mother Depressive disorder Not available 2022 12:02:28 Mother Mental disorder Not available 2022 12:02:28 Brother Asthma Not available 06/04/2023 12:02:28 Brother Anxiety disorder Not available 2022 12:02:28 Brother Depressive disorder Not available 2022 12:02:28 Brother Mental disorder Not available 2022 12:02:28 Father Mental disorder Not available 2022 12:02:28 Medical History Condition Response Arthritis Y Eczema Y Urinary Tract Infection Y Headaches Y Pre-Eclampsia Y Kidney or Bladder Problems Y Asthma Y Psychiatric Illness Y Gynecological History Statement/Question Response Date of LMP 05/29/2023 On BCP's at Conception? Y N Was last menstrual period normal Y STIs/STDs Y HPV Vaccine N Duration of Flow (days) 3 Current Control Method None Age at First Child 20 Date of control 05/31/2023 Frequency of Cycle (Q days) 3 Sexually Active? Y Other Age of first menstrual cycle 13 Date of Last Pap Smear Sexual Problems? N Desired Control Method Sterilizati on LMP Approximate N Obstetrics History GPAL:G 3 P 1 0 2 1 Type Value Full Term 1 Induced 2 Living 1 Total 3 Past Encounters Encounter ID Performer Location Encounter Start Date Encounter Closed Date Diagnosis/Indication Diagnosis SNOMED-CT Code Diagnosis ICD10 Code Diagnosis IMO Codes Diagnosis Note [id number] Herbie Gar MD [place] [address],[place] [address] 06/04/2023 11:58:11 06/04/2023 13:00:28 Contraception care management 205177710 Z30.9 This patient is a 23-year-ol d female presents for contracept ion. She is undecided as to what she should start. Talked about all her options. We talked about control pills, patches, vaginal ring. We talked about progestero ne containing and copper IUD. We talked about progestero ne only options such as Depo-Prove ra shot, progestero ne only pills, Nexplanon. We talked about the risks benefits and pros and cons of each method. We spent 15 minutes face-to-fa ce. All of this was counseling . Ultimately she decided on Mirena IUD. She was given instructio ns on starting this method. She was informed of side effects. She was given precaution s on failure and special circumstan basia. She was quoted failure rates for all of the methods we discussed. Patient has had 2 terminatio ns in the last year. She wants tubal ligation. We agreed to Mirena trial. If that fails I agreed to tubal ligation [id number] Herbie Gar MD [place] [address],[place] [address] 06/13/2023 11:49:07 06/13/2023 12:32:03 Contraception care management 342852202 Z30.9 IUD placed without complicati ons. She tolerated well [id number] Herbie Gar MD [place] [address],[place] [address] 08/10/2023 18:01:05 08/11/2023 08:40:35 Contraception care management [id number] Z30.9 IUD removed without complicati ons. [id number] Herbie Gar MD [place] [address],[place] [address] 07/14/2023 11:20:56 07/15/2023 10:48:34 Pain in pelvis 91911323 R10.2 patient is a 23-year-ol d female presents for pelvic pain. She has sharp right-side d pain in the pelvis. It radiates down her leg and into her lower back. It is been present for a couple of months. She recently had an IUD inserted. She did go to the emergency department . She was found to have a right ovarian cyst. This was observed on CT scan. We talked about evaluation . She was examined. She has got some right-side d tenderness . She has no cervical motion tenderness . Normal vulva, vagina, cervix. The bimanual exam revealed tenderness on the right side. We talked about completing the evaluation and consider treatment options. Will perform pelvic ultrasound she will return to discuss treatment. We spent 20 minutes face-to-fa ce. More than 50% was counseling . Health Concerns Section Related Observation LastModified by Organization Detai ls LastModified Time None Recorded Concern Status LastModified by Organization Details LastModified Time None Recorded Advance Directives Directive None Recorded Payers Insurance Date Sequence Insurance Name Policy Number Policy Kelley Covered Member ID Kelley Member ID Guarantor Name 08/07/2023 1 [facility] [id number] [facility] [id number] [facility] Notes Date Note Type Note Provider Name and Address Organization Details Recorded Time 06/04/2023 text/html This patient is a 23-year-old female presents for contraception. She is undecided as to what she should start. Talked about all her options. We talked about control pills, patches, vaginal ring. We talked about progesterone containing and copper IUD. We talked about progesterone only options such as Depo-Provera shot, progesterone only pills, Nexplanon. We talked about the risks benefits and pros and cons of each method. We spent 15 minutes [id number]. All of this was counseling. Ultimately she decided on Mirena IUD. She was given instructions on starting this method. She was informed of side effects. She was given precautions on failure and special circumstances. She was quoted failure rates for all of the methods we discussed. Patient has had 2 terminations in the last year. She wants tubal ligation. We agreed to Mirena trial. If that fails I agreed to tubal ligation Herbie Gar MD [address], [place], [address], [place] [facility] 06/04/2023 12:50:39 06/13/2023 text/html Patient presents for IUD insertion. Herbie Gar MD [address], [place], [address], [facility] 06/13/2023 12:30:28 07/14/2023 text/html patient is a 23-year-old female presents for pelvic pain. She has sharp right-sided pain in the pelvis. It radiates down her leg and into her lower back. It is been present for a couple of months. She recently had an IUD inserted. She did go to the emergency department. She was found to have a right ovarian cyst. This was observed on CT scan. We talked about evaluation. She was examined. She has got some right-sided tenderness. She has no cervical motion tenderness. Normal vulva, vagina, cervix. The bimanual exam revealed tenderness on the right side. We talked about completing the evaluation and consider treatment options. Will perform pelvic ultrasound she will return to discuss treatment. We spent 20 minutes [id number]. More than 50% was counseling. Herbie Gar MD [address], [place], [address], [facility] 07/14/2023 18:20:27 08/10/2023 text/html Patient presents for IUD removal. Herbie Gar MD [address], [place], [address], [facility] 08/10/2023 19:04:31 OBGyn Episode Ob Episode Information Episode Created Date Number of Fetuses Patient Bloodtype Patient rh Status Prepregnancy Weight lbs Domestic Partner Domestic Partner Phone Father Name Aircraft Instrument Tester Status 06/04/20 23 1 CLOSED Fetus Data First Name Last Name Admitted to NICU Weight (g) Sex Living Outcome Pediatric Complications Fetus ID Race Codes Race Delivery Type [id number] F Full Term [id number] Vaginal Delivery Josué Calculation Initial Josué Date Initial Exam Date Initial Exam Provider Initial Ultrasound Date Last Menstrual Period Date Ultra Sound Weeks Gestation 0 Eighteen To Twenty Week Josué Update Ultra Sound Date Fundal Height At Umbil Quickening Date Ultra Sound Latest Weeks Gestation Final Josué Confirmed By Final Josué Confirmed Date Final Josué Date Ultra Sound Latest Days Gestation 0 0 Menstrual History Last Menstrual Date Menses Monthly On Bcp Conception Prior Menses Frequency Hcg Plus Date Menarche Onset Age Delivery Information Delivery Date Delivery Type Labor Anesthesia Weeks Gestation Incision Type Labor Labor Length Hrs Delivered By Post Complications Tubal Sterilization Discharge Date Comments 1 37 Pre- eclampsia Discharge Information Feeding Method Contraceptive Method Maternal HG B and HCT Levels Ob Episode Information Episode Created Date Number of Fetuses Patient Bloodtype Patient rh Status Prepregnancy Weight lbs Domestic Partner Domestic Partner Phone Father Name Aircraft Instrument Tester Status 06/04/20 23 1 CLOSED Fetus Data First Name Last Name Admitted to NICU Weight (g) Sex Living Outcome Pediatric Complications Fetus ID Race Codes Race Delivery Type , Induced Josué Calculation Initial Josué Date Initial Exam Date Initial Exam Provider Initial Ultrasound Date Last Menstrual Period Date Ultra Sound Weeks Gestation 0 Eighteen To Twenty Week Josué Update Ultra Sound Date Fundal Height At Umbil Quickening Date Ultra Sound Latest Weeks Gestation Final Josué Confirmed By Final Josué Confirmed Date Final Josué Date Ultra Sound Latest Days Gestation 0 0 Menstrual History Last Menstrual Date Menses Monthly On Bcp Conception Prior Menses Frequency Hcg Plus Date Menarche Onset Age Delivery Information Delivery Date Delivery Type Labor Anesthesia Weeks Gestation Incision Type Labor Labor Length Hrs Delivered By Post Complications Tubal Sterilization Discharge Date Comments 3 Discharge Information Feeding Method Contraceptive Method Maternal HG B and HCT Levels Ob Episode Information Episode Created Date Number of Fetuses Patient Bloodtype Patient rh Status Prepregnancy Weight lbs Domestic Partner Domestic Partner Phone Father Name Aircraft Instrument Tester Status 06/04/20 23 1 CLOSED Fetus Data First Name Last Name Admitted to NICU Weight (g) Sex Living Outcome Pediatric Complications Fetus ID Race Codes Race Delivery Type , Induced Josué Calculation Initial Josué Date Initial Exam Date Initial Exam Provider Initial Ultrasound Date Last Menstrual Period Date Ultra Sound Weeks Gestation 0 Eighteen To Twenty Week Josué Update Ultra Sound Date Fundal Height At Umbil Quickening Date Ultra Sound Latest Weeks Gestation Final Josué Confirmed By Final Josué Confirmed Date Final Josué Date Ultra Sound Latest Days Gestation 0 0 Menstrual History Last Menstrual Date Menses Monthly On Bcp Conception Prior Menses Frequency Hcg Plus Date Menarche Onset Age Delivery Information Delivery Date Delivery Type Labor Anesthesia Weeks Gestation Incision Type Labor Labor Length Hrs Delivered By Post Complications Tubal Sterilization Discharge Date Comments 3 Discharge Information Feeding Method Contraceptive Method Maternal HG B and HCT Levels
== END 2025-10-21 19:42 | disposition home or self-care (01) ==
PROVIDERS: Emergency Provider Emergency Medicine; PCP Nurse Practitioner Family
DX: J01.00 Acute maxillary sinusitis, unspecified (principal); F17.290 Nicotine dependence, other tobacco product, uncomplicated
CPT/HCPCS: 99283; A9270; J7512